=== PATIENT | female | born 1965 | race Caucasian/White ===

== ENCOUNTER 2020-06-21 08:49 | Outpatient (CLI) | payer OTHER, SELFPAY ==
--- NOTE | ~2020-06-21 | MMUS_ITS ---
EXAMINATION: MM diagnostic antoinette LT w yaneth, US breast LT complete HISTORY: Left breast mass TECHNIQUE: Additional 3-D tomosynthesis images of left were performed and synthetic 2-D images were g enerated. CAD analysis was submitted and interpreted. High resolution left breast ultrasound was perf ormed. COMPARISON: Comparison to multiple prior studies sequentially, with oldest reviewed study dated 12/2016. BREAST PARENCHYMAL COMPOSITION: The breasts are heterogenously dense, which may obscure small masses FINDINGS: MAMMOGRAPHIC FINDINGS: There is a lobulated 1.3 cm mass lower central aspect of the left breast. There is an intramammary ly mph node in the upper outer quadrant of the left breast. There is a tissue marker in the lower inner quadrant of the left breast. There are no suspicious calcifications or architectural distortion. ULTRASOUND: Left breast ultrasound: There is a complex heterogeneous area of soft tissue with posterior shadowing at 12:00, 1 cm from the nipple measuring approximately 1.8 cm greatest dimension. There are multiple simple and complicated cysts of the left breast. At 3:00, 1 cm from the nipple, there is an irregular shaped hypoechoic mass with antiparallel configuration of posterior shadowing measuring 5 x 4 mm. IMPRESSION: 1. Abnormal masses located at 12:00, 1 cm from the nipple measuring up to 1.8 cm and at 3:00, 1 cm fr om the nipple measuring 5 mm maximum dimension. 2. Stereotactic left breast biopsy recommended. BI-RADS category 4, suspicious findings. Reviewed, dictated and finalized at location A. IMPRESSION: 1. Abnormal masses located at 12:00, 1 cm from the nipple measuring up to 1.8 c m and at 3:00, 1 cm from the nipple measuring 5 mm maximum dimension. 2. Stereotactic left breast biopsy recommended. BI-RADS category 4, suspicious findings.
[2020-06-21 09:09] LABS: Hemoglobin A1C 6.5 % (<5.7)
[2020-06-21 09:54] LABS: Alanine Aminotransferase 41 U/L (14-59); Albumin Level 4.1 g/dL (3.4-5.0); Alkaline Phosphatase 53 U/L (46-116); Anion Gap 11.2 mmol/L (7-16); Aspartate Amino Transferase 22 U/L (15-37); Bilirubin,Total 0.6 mg/dL (0.00-1.00); Blood Urea Nitrogen 15 mg/dL (7-18); Calcium 9.4 mg/dL (8.5-10.1); Carbon Dioxide 32 mmol/L (21-32); Chloride 101 mmol/L (98-108); Estimated Glomerular Filt Rate 49; Glucose 137 mg/dL (70-99); Osmolality Calculated 292 mOsm/kg (285-295); Potassium 4.2 mmol/L (3.5-5.1); Sodium 140 mmol/L (136-145); Thyroid Stimulating Hormone 3.58 uIU/mL (0.36-3.74); Total Protein 7.8 g/dL (6.4-8.2)
== END 2020-06-21 08:50 | disposition home or self-care (01) ==
PROVIDERS: PCP Internal Medicine; Visit Provider Internal Medicine
DX: R92.8 Other abnormal and inconclusive findings on diagnostic imaging of breast (principal); E11.9 Type 2 diabetes mellitus without complications; I10 Essential (primary) hypertension; F41.9 Anxiety disorder, unspecified
CPT/HCPCS: 36415; 76641; 77061; 77065; 80053; 83036; 84443; G0279

== ENCOUNTER 2020-07-12 07:58 | Outpatient (CLI) | payer OTHER, SELFPAY ==
--- NOTE | ~2020-07-12 | MMUS_ITS ---
MM post biopsy invasive LT, US breast biopsy LT w image 07/12/2020 09:19 (accession [id number]), 07/12/2020 09:26 (accession [id number]) EXAMINATION: US GUIDED NEEDLE BIOPSY WITH VACUUM ASSISTANCE DATE: 07/12/2020 09:38 CDT INDICATION: Left breast mass seen on recent examination. Ultrasound-guided core biopsy is requested to evaluate for malignancy. TECHNIQUE AND FINDINGS: The risks and potential benefits of the procedure were discussed with the patient, and written inform ed consent was obtained. After sterile preparation of the left breast, 1% lidocaine was utilized for local anesthesia. 1% lidocaine with epinephrine was used for deep anesthesia. A 10G vacuum-assisted biopsy gun needle was advanced through to the outer edge of the region of inter est from a superior approach utilizing sonographic guidance. A total of 2 tissue core samples were o btained through the lesion. An Inrad tissue marker clip was then placed at the biopsy site. Hemostas is was achieved. The patient tolerated procedure well and there was no evidence of immediate complication. The patien t was given verbal instructions partly is from the department. Left breast mammograms to document ti ssue marker clip placement. The tissue samples were submitted to surgical pathology for histologic an alysis.] IMPRESSION: 1. Successful ultrasound-guided vacuum-assisted biopsy of left breast mass with tissue marker placem ent. Please refer to pathology report for histologic analysis. Reviewed, dictated and finalized at location A. IMPRESSION: 1. Successful ultrasound-guided vacuum-assisted biopsy of left breast mass wit h tissue marker placement. Please refer to pathology report for histologic anal ysis.
== END 2020-07-12 07:59 | disposition home or self-care (01) ==
LOC: ANHIMG 08:00
PROVIDERS: PCP Internal Medicine; Visit Provider Internal Medicine
DX: N63.20 Unspecified lump in the left breast, unspecified quadrant (principal)
CPT/HCPCS: 19083; 88305

== ENCOUNTER 2020-10-08 15:03 | Outpatient (CLI) | payer OTHER, SELFPAY ==
--- NOTE | ~2020-10-08 | US_ITS ---
EXAMINATION: US breast RT complete HISTORY: Patient presents with palpable right breast mass TECHNIQUE: Complete right breast ultrasound is performed including all quadrants in the subareolar re gion. COMPARISON: 12/08/2019 FINDINGS: Again seen are multiple areas of dense breast tissue as well as several breast cysts. No di screte suspicious cystic or solid mass is identified. IMPRESSION: No definite discrete mass identified to correlate with reported palpable abnormality of the right [place] ast. Recommend right diagnostic mammogram. BI-RADS Category 0: Incomplete: Needs additional imaging evaluation. Reviewed, dictated and finalized at location A. EATION TECHNICIAN IMPRESSION: No definite discrete mass identified to correlate with reported palpable abnorm ality of the right breast. Recommend right diagnostic mammogram. BI-RADS Category 0: Incomplete: Needs additional imaging evaluation.
== END 2020-10-08 15:04 | disposition home or self-care (01) ==
LOC: CHSIMG 15:05
PROVIDERS: PCP Internal Medicine; Visit Provider Internal Medicine
DX: N63.10 Unspecified lump in the right breast, unspecified quadrant (principal)
CPT/HCPCS: 76641

== ENCOUNTER 2020-10-11 08:54 | Outpatient (CLI) | payer OTHER, SELFPAY ==
--- NOTE | ~2020-10-11 | MM_ITS ---
EXAMINATION: MM diagnostic antoinette RT w yaneth HISTORY: Palpable lump at the 11:00 and 12:00 location of the right breast TECHNIQUE: Craniocaudal and mediolateral oblique 3-D tomosynthesis images of the right breast were pe rformed and synthetic 2-D images were generated. Spot compression views are also obtained. CAD analys is was submitted and interpreted. COMPARISON: 12/08/2019, 11/17/2019, 11/11/2018 BREAST PARENCHYMAL COMPOSITION: The breasts are heterogeneously dense, which may obscure small masses . FINDINGS: There is no evidence of suspicious mass, calcification, or architectural distortion to sug gest malignancy. There has been no suspicious interval change. No mammographic correlate is identifie d for the reported palpable abnormality of the right breast. IMPRESSION: 1. No specific mammographic correlate is identified for the reported palpable abnormality of concern. Further evaluation at this time should be based on clinical assessment. Continued follow-up physical examination is recommended. 2. Routine screening mammography is recommended. BI-RADS Category 1: Negative Reviewed, dictated and finalized at location A. COVERER IMPRESSION: 1. No specific mammographic correlate is identified for the reported palpable a bnormality of concern. Further evaluation at this time should be based on clini alla assessment. Continued follow-up physical examination is recommended. 2. Routine screening mammography is recommended. BI-RADS Category 1: Negative
== END 2020-10-11 08:55 | disposition home or self-care (01) ==
LOC: CHSIMG 08:56
PROVIDERS: PCP Internal Medicine; Visit Provider Internal Medicine
DX: N64.59 Other signs and symptoms in breast (principal)
CPT/HCPCS: 77061; 77065; G0279

== ENCOUNTER 2021-07-04 08:36 | Outpatient (CLI) | payer OTHER, SELFPAY ==
[2021-07-04 08:47] LABS: Basophils Absolute Auto 0.03 K/mm3 (0.00-0.10); Basophils Percent Auto 0.7 % (0.0-1.0); Eosinophils Absolute Auto 0.18 K/mm3 (0.02-0.50); Hematocrit 42.5 % (35.0-49.0); Hemoglobin 13.7 g/dL (12.0-15.0); Immature Granulocyte Absolute 0.01 K/mm3 (0.00-0.00); Immature Granulocyte Percent A 0.2 % (0.0-0.0); Lymphocytes Absolute Auto 1.37 K/mm3 (1.10-4.50); Lymphocytes Percent Auto 30.8 % (18.0-42.0); Mean Corpuscular HGB Conc 32.2 g/dL (32.0-36.0); Mean Corpuscular Hemoglobin 29.4 pg (27.0-31.0); Mean Corpuscular Volume 91.2 fL (78.0-102.0); Mean Platelet Volume 10.5 fl (9.2-11.8); Monocytes Percent Auto 6.7 % (2.0-11.0); Neutrophils Absolute Auto 2.6 K/mm3 (1.7-7.2); Neutrophils Percent Auto 57.6 % (50.0-70.0); Platelet Count Result 209 K/mm3 (150-420); Red Blood Count 4.66 M/mm3 (4.20-5.40); Red Cell Distribution Width 12.6 % (11.6-14.4); White Blood Count 4.5 K/mm3 (4.8-10.8)
[2021-07-04 09:05] LABS: Hemoglobin A1C 6.4 % (<5.7)
[2021-07-04 09:13] LABS: Creatinine Urine 121.12 mg/dL (40-278); MALB Creatinine Ratio 13.4 mg/g (0-30); Microalbumin Urine Random 16.3 mg/L
[2021-07-04 09:21] LABS: Appearance Urine Clear (Clear); Color Urine Light Yellow (Yellow); Glucose Urine UA Negative (Negative); Protein Urine Negative (Negative); Specific Grav Ur 1.015 (1.010-1.020); pH Urine 6.5 (5.0-8.0)
[2021-07-04 09:22] LABS: Add Urine Microscopic? YES; Bilirubin Urine Negative (Negative); Blood Urine 1+ (Negative); Ketones Urine Negative (Negative); Leukocyte Esterase Ur Negative (Negative); Nitrate Urine Negative (Negative); Squamous Epithelial Cell Urine Rare /hpf (Few); Urobilinogen Urine 0.2 mg/dL (0.2-1.0); WBC Urine None seen /hpf (0-3)
[2021-07-04 09:23] LABS: Bacteria Urine Trace /hpf
[2021-07-04 11:58] LABS: Alanine Aminotransferase 37 U/L (14-59); Albumin Level 4.2 g/dL (3.4-5.0); Alkaline Phosphatase 58 U/L (46-116); Anion Gap 13 mmol/L (8-16); Aspartate Amino Transferase 15 U/L (15-37); Bilirubin,Total 0.5 mg/dL (0.00-1.00); Blood Urea Nitrogen 16 mg/dL (7-18); Calcium 9.4 mg/dL (8.5-10.1); Carbon Dioxide 27 mmol/L (21-32); Chloride 103 mmol/L (98-108); Cholesterol 199 mg/dL (0-200); Estimated Glomerular Filt Rate > 60; Glucose 130 mg/dL (70-99); HDL Direct 61 mg/dL (40-60); LDL Cholesterol Calculated 107 mg/dL (<130); Osmolality Calculated 299 mOsm/kg (285-295); Sodium 143 mmol/L (136-145); Thyroid Stimulating Hormone 3.78 uIU/mL (0.36-3.74); Total Protein 7.9 g/dL (6.4-8.2); Triglycerides 155 mg/dL (0-150)
== END 2021-07-04 08:37 | disposition home or self-care (01) ==
LOC: CHSLAB 08:39
PROVIDERS: PCP Internal Medicine; Visit Provider Internal Medicine
DX: Z00.00 Encounter for general adult medical examination without abnormal findings (principal); I10 Essential (primary) hypertension; R73.03 Prediabetes
CPT/HCPCS: 36415; 80053; 80061; 81001; 82043; 83036; 84443; 85025

== ENCOUNTER 2021-07-29 14:47 | Outpatient (CLI) | payer OTHER, SELFPAY ==
--- NOTE | ~2021-07-29 | XR_ITS ---
EXAMINATION: XR wrist RT min 3V DATE: 07/29/2021 15:06 INDICATION: Right posterior wrist bony mass. TECHNIQUE: 4 views of right wrist were obtained. COMPARISON: None. FINDINGS: Bone alignment is normal. No fracture. There is mild osteoarthritis of first carpometacarpa l joint, first interphalangeal joint, and second and third metacarpophalangeal joints. IMPRESSION: 1. Mild polyarticular osteoarthritis. Reviewed, dictated and finalized at location A.
== END 2021-07-29 14:48 | disposition home or self-care (01) ==
LOC: CHSIMG 14:50
PROVIDERS: PCP Internal Medicine; Visit Provider Internal Medicine
DX: R22.31 Localized swelling, mass and lump, right upper limb (principal)
CPT/HCPCS: 73110

== ENCOUNTER 2021-09-15 16:50 | Emergency (ER) | payer OTHER, SELFPAY ==
--- NOTE | ~2021-09-15 | CT_ITS ---
EXAMINATION: CT abdomen pelvis wo con DATE: 09/15/2021 18:57 INDICATION: Left abdominal pain. TECHNIQUE: Computed tomography (CT) of the abdomen and pelvis was performed without intravenous contr ast. Automated exposure control and iterative reconstruction technique were employed. The dose-length product was 305.01 mGy-cm. COMPARISON: CT abdomen and pelvis 05/11/2017 FINDINGS: The visualized portions of the lung bases demonstrate mild atelectasis. No pleural effusion . The heart size is normal. No pericardial effusion. There is diffuse hepatic steatosis. There are ch anges of cholecystectomy. The spleen, pancreas, and adrenal glands are normal. There are 5 mm and 2 m m stones in right kidney. There is a 2 mm stone in left kidney. There are no dilated loops of bowel. The appendix is normal. There are no pathologically enlarged lymph nodes. There is no free intraperit paredes fluid. There is moderate thoracic and lumbar spondylosis. IMPRESSION: 1. Bilateral nonobstructing kidney stones. 2. Diffuse hepatic steatosis. Reviewed, dictated and finalized at location A.
--- NOTE | 2021-09-15 17:35 | ED.ABDPAIN ---
HPI - Abdominal Pain General Chief Complaint: Abdominal Pain Stated Complaint: side pain Time Seen by Provider: 09/15/21 17:35 Source: patient Mode of arrival: ambulatory Limitations: no limitations History of Present Illness HPI narrative: 56-year-old woman with a history of urolithiasis and ovarian cysts comes to the emergency department complaining of left lower abdominal pain that started about 1:00 p.m. this afternoon. She states the pain is worse while sitting. She denies fever, chills, nausea, vomiting, dysuria, hematuria, diarrhea, or prior similar symptoms. She has had no recent cough or cold symptoms. MD elicited complaint: abdominal pain Pertinent past history: kidney stones Onset (ago): hour(s) (5) Pain Consistency: constant Location: LLQ Severity: moderate Pain scale (0-10): 6 Quality: sharp Radiation: none Migration to: no migration Exacerbating factors: other (Sitting) Associated symptoms: denies other symptoms Related Data Home Medications Medication Instructions Recorded Confirmed lovastatin 10 mg PO HS 09/15/21 09/15/21 pantoprazole 40 mg PO DAILY 09/15/21 09/15/21 verapamil 180 mg PO HS 09/15/21 09/15/21 Allergies Allergy/AdvReac Type Severity Reaction Status Date / Time amoxicillin Allergy Unknown Unknown Unverified 09/15/21 17:58 clavulanic acid Allergy Unknown Unknown Unverified 09/15/21 17:58 Review of Systems Review of Systems: All systems reviewed & are unremarkable except as noted in HPI and below Constitutional: Constitutional: Denies chills and Denies fever(s) ENT: Denies sore throat Cardiovascular: Cardiovascular: Denies chest pain and Denies radiating jaw, neck or arm pain Respiratory: Respiratory: Denies cough and Denies dyspnea Gastrointestinal: Gastrointestinal: Reports abdominal pain, Denies diarrhea, Denies nausea and Denies vomiting Genitourinary: Genitourinary: Denies hematuria, Denies nocturia and Denies dysuria Musculoskeletal: Musculoskeletal: Denies back pain, Denies arthralgias and Denies joint swelling Integumentary/Breasts: Skin/Breast: Denies pruritus, Denies erythema and Denies rash Neurologic: Denies vertigo, Denies syncope and Denies focal weakness Hematologic/Lymphatic: Hematologic/Lymphatic: Denies easy bleeding and Denies easy bruising PMFSH Past Medical History Medical History GERD (gastroesophageal reflux disease) Hypertension Surgical History Surgical History H/O ovarian cystectomy H/O: hysterectomy S/P cholecystectomy Social History Social History (Updated 09/15/21 @ 17:50 by Roosevelt Duenas MD) Smoking status: Never smoker Alcohol intake: never Substance use: never Living arrangements: with family Exam Const: General: healthy appearing and alert Orientation/consciousness: patient oriented x3 Limitations: no limitations Other: Mild HENMT: Head: normal to inspection Ears: external ears normal, TM's normal bilaterally and EAC's normal General nose exam: Normal nares present Face and sinus: normal facial exam Mouth: Yes moist mucous membranes Throat: posterior oropharynx normal Eyes: Conjunctivae: conjunctivae normal Pupils: Equal, round and reactive pupils present EOM: EOMs intact bilaterally Resp: Effort & Inspection: normal respiratory effort and not labored Auscultation: clear to auscultation bilaterally, no rales, no rhonchi and no wheezes Cardio: Rate: regular rate Rhythm: regular rhythm Heart sounds: no murmurs GI: GI Palp: Yes Soft to palpation, Yes Tenderness to palpation present (GI) (RLQ), No Guarding due to palpation present (GI), No Rigid due to palpation, No Hernia present and No Palpable mass present Auscultation: normal bowel sounds Skin: General skin exam: normal color, no jaundice and no pallor Rashes: no rashes Extrem: General: normal to inspection and no clubbing, cyanosis or e
[2021-09-15 17:53] VITALS: BP 162/85; PULSE 80; RESP 20; TEMP 36.8; O2SAT 99
[2021-09-15 17:55] LABS: Basophils Absolute Auto 0.04 K/mm3 (0.00-0.10); Basophils Percent Auto 0.6 % (0.0-1.0); Eosinophils Absolute Auto 0.18 K/mm3 (0.02-0.50); Eosinophils Percent Auto 2.8 % (1.0-6.0); Hematocrit 41.7 % (35.0-49.0); Hemoglobin 13.8 g/dL (12.0-15.0); Immature Granulocyte Absolute 0.01 K/mm3 (0.00-0.00); Immature Granulocyte Percent A 0.2 % (0.0-0.0); Lymphocytes Absolute Auto 1.73 K/mm3 (1.10-4.50); Mean Corpuscular HGB Conc 33.1 g/dL (32.0-36.0); Mean Corpuscular Volume 90.7 fL (78.0-102.0); Mean Platelet Volume 10.9 fl (9.2-11.8); Monocytes Percent Auto 7.8 % (2.0-11.0); Neutrophils Absolute Auto 3.9 K/mm3 (1.7-7.2); Neutrophils Percent Auto 61.6 % (50.0-70.0); Platelet Count Result 210 K/mm3 (150-420); Red Cell Distribution Width 12.2 % (11.6-14.4); White Blood Count 6.4 K/mm3 (4.8-10.8)
[2021-09-15 17:56] LABS: Appearance Urine Clear (Clear); Bilirubin Urine Negative (Negative); Color Urine Light Yellow (Yellow); Glucose Urine UA Negative (Negative); Ketones Urine Negative (Negative); Leukocyte Esterase Ur Negative (Negative); Nitrate Urine Negative (Negative); Protein Urine Negative (Negative); Specific Grav Ur <= 1.005 (1.010-1.020); Urobilinogen Urine 0.2 mg/dL (0.2-1.0)
[2021-09-15 18:10] LABS: Add Urine Microscopic? YES; Blood Urine Trace (Negative); RBC Urine 0-2 /hpf (0-2)
[2021-09-15 18:14] LABS: Lactic Acid Reflex 2.1 mmol/L (0.4-2.0)
[2021-09-15 18:21] LABS: Alanine Aminotransferase 40 U/L (14-59); Albumin Level 4.1 g/dL (3.4-5.0); Alkaline Phosphatase 58 U/L (46-116); Anion Gap 12 mmol/L (8-16); Aspartate Amino Transferase 13 U/L (15-37); Bilirubin,Total 0.4 mg/dL (0.00-1.00); Blood Urea Nitrogen 11 mg/dL (7-18); Calcium 9.3 mg/dL (8.5-10.1); Carbon Dioxide 29 mmol/L (21-32); Chloride 100 mmol/L (98-108); Estimated CRCL calculation 53 ml/min; Estimated Glomerular Filt Rate > 60; Glucose 158 mg/dL (70-99); Osmolality Calculated 294 mOsm/kg (285-295); Potassium 3.1 mmol/L (3.5-5.1); Sodium 141 mmol/L (136-145); Total Protein 8.1 g/dL (6.4-8.2); Troponin I 4.1 ng/L (0.00-60.4)
[2021-09-15 18:22] LABS: Lipase 129 U/L (73-393)
[2021-09-15 19:31] VITALS: BP 154/80; PULSE 78; RESP 20; O2SAT 97
== END 2021-09-15 19:32 | disposition home or self-care (01) ==
PROVIDERS: Emergency Provider Emergency Medicine; PCP Internal Medicine
DX: E87.6 Hypokalemia (principal); R10.32 Left lower quadrant pain
CPT/HCPCS: 36415; 74176; 80053; 81001; 83605; 83690; 84484; 85025; 99282; 99284

== ENCOUNTER 2021-09-21 09:28 | Emergency (ER) | payer OTHER, SELFPAY ==
--- NOTE | ~2021-09-21 | CT_ITS ---
EXAMINATION: CT brain wo con INDICATION: Dizziness COMPARISON: None TECHNIQUE: Standard unenhanced head CT. The dose-length product (DLP) was 605.33 mGy-cm. The mA was a djusted according to patient size. Iterative reconstruction technique was employed. FINDINGS: There is no intracranial hemorrhage, acute infarction, or abnormal mass lesion. The ventric les are normal. There is no abnormal mass effect or midline shift. The zhou-white matter differentiat ion is normal. The basal cisterns are patent. The orbits are normal. There is mild mucosal thickening of the paranasal sinuses. IMPRESSION: 1. No acute intracranial abnormality. Reviewed, dictated and finalized at location A.
--- NOTE | 2021-09-21 09:36 | ED.WEAKNESS ---
HPI - Weakness General Chief complaint: Nausea/Vomiting/Diarrhea Stated complaint: N, loss of appetite, weakness dificulty standing Time Seen by Provider: 09/21/21 09:36 Related Data Home Medications Medication Instructions Recorded Confirmed lovastatin 10 mg PO HS 09/15/21 09/15/21 pantoprazole 40 mg PO DAILY 09/15/21 09/15/21 verapamil 180 mg PO HS 09/15/21 09/15/21 Allergies Allergy/AdvReac Type Severity Reaction Status Date / Time amoxicillin Allergy Unknown Unknown Verified 09/21/21 09:47 clavulanic acid Allergy Unknown Unknown Verified 09/21/21 09:47 [facility] Past Medical History Medical History GERD (gastroesophageal reflux disease) Hypertension Surgical History Surgical History H/O ovarian cystectomy H/O: hysterectomy S/P cholecystectomy Social History Social History (Updated 09/15/21 @ 17:50 by Roosevelt Duenas MD) Smoking status: Never smoker Alcohol intake: never Substance use: never MDM - Weakness ECG Data EKG #1: Attestation: I personally reviewed and interpreted this ECG as follows: ECG completion date: 09/21/21 ECG completion time: 09:57 Prior ECG tracings: available for review Interpretation: IVCD EKG Interpretation: normal rate, sinus rhythm, no ectopy, non-specific ST changes, widened QRS and NL axis Discharge Plan Discharge Prescriptions: No Action verapamil 180 mg tablet extended release 180 mg PO HS RF: 0 lovastatin 10 mg tablet 10 mg PO HS RF: 0 pantoprazole 40 mg tablet,delayed release (DR/EC) 40 mg PO DAILY RF: 0
[2021-09-21 09:40] VITALS: BP 152/86; PULSE 74; RESP 16; TEMP 36.6; O2SAT 100
--- NOTE | 2021-09-21 09:44 | ECG_ITS ---
Measurements Intervals [place] Rate: 68 P: 20 [place]: 166 QRS: 46 QRSD: 114 T: 52 QT: 396 QTc: 422 Interpretive Statements SINUS RHYTHM INCOMPLETE RIGHT BUNDLE BRANCH BLOCK BASELINE ARTIFACT- I, II, III, AVR, AVL, AVF BORDERLINE ECG Electronically Signed On 09-22-2021 22:37:20 CDT by Chuy Ochoa D.O.
[2021-09-21 10:00] VITALS: BP 137/74; PULSE 77
--- NOTE | 2021-09-21 10:04 | ED.DIZZY ---
HPI - Dizziness General Chief Complaint: Nausea/Vomiting/Diarrhea Stated Complaint: N, loss of appetite, weakness dificulty standing Time Seen by Provider: 09/21/21 09:36 Source: patient Mode of arrival: wheelchair Limitations: no limitations History of Present Illness HPI Narrative: 56-year-old woman with a history of hypertension comes in today complaining of dizziness has and feeling off balance so that she has to use [place] and furniture to steady herself. She states her symptoms started early this morning. She has nausea as well. She states that she has had ringing in her ears the past. She denies headaches, changes in vision, vomiting, diarrhea, cough or cold symptoms, cough, shortness of breath and chest pressure. She denies any sick exposures. MD elicited complaint: dizziness, difficulty walking and disequilibrium Onset (ago): hour(s) Timing: sudden onset Severity: moderate Description: off-balance Context: change in body position History of similar symptoms: No Exacerbating factors: movement/ambulation and change in body position Relieving factors: remaining still Associated symptoms: nausea and other (poor appetite) Related Data Home Medications Medication Instructions Recorded Confirmed lovastatin 10 mg PO HS 09/15/21 09/21/21 pantoprazole 40 mg PO DAILY 09/15/21 09/21/21 verapamil 180 mg PO HS 09/15/21 09/21/21 Allergies Allergy/AdvReac Type Severity Reaction Status Date / Time amoxicillin Allergy Unknown Unknown Verified 09/21/21 09:47 clavulanic acid Allergy Unknown Unknown Verified 09/21/21 09:47 Review of Systems Review of Systems: All systems reviewed & are unremarkable except as noted in HPI and below Constitutional: Constitutional: Denies chills and Denies fever(s) Eyes: Eyes: Denies change in vision and Denies photophobia ENT: Denies dysphagia, Denies nasal congestion and Denies sore throat Cardiovascular: Cardiovascular: Denies chest pain and Denies radiating jaw, neck or arm pain Respiratory: Respiratory: Denies cough and Denies dyspnea Gastrointestinal: Gastrointestinal: Denies abdominal pain, Denies diarrhea, Reports nausea and Denies vomiting Musculoskeletal: Musculoskeletal: Denies back pain, Denies arthralgias and Denies joint swelling Integumentary/Breasts: Skin/Breast: Denies pruritus, Denies erythema and Denies rash Neurologic: Denies vertigo, Reports dizziness and Denies syncope Hematologic/Lymphatic: Hematologic/Lymphatic: Denies easy bleeding and Denies easy bruising Allergic/Immunologic: Allergic/Immunologic: Denies throat swelling and Denies tongue swelling [facility] Past Medical History Medical History GERD (gastroesophageal reflux disease) Hypertension Surgical History Surgical History H/O ovarian cystectomy H/O: hysterectomy S/P cholecystectomy Social History Social History Smoking status: Never smoker Alcohol intake: never Substance use: never Exam Const: General: healthy appearing, no acute distress and alert Orientation/consciousness: patient oriented x3 Limitations: no limitations Eyes: Conjunctivae: conjunctivae normal Pupils: Equal, round and reactive pupils present EOM: EOMs intact bilaterally Resp: Effort & Inspection: normal respiratory effort and not labored Auscultation: clear to auscultation bilaterally, no rales, no rhonchi and no wheezes Cardio: Rate: regular rate Rhythm: regular rhythm Heart sounds: no murmurs GI: GI Palp: Yes Soft to palpation, Yes Tenderness to palpation present (GI) and No Guarding due to palpation present (GI) Auscultation: normal bowel sounds Skin: General skin exam: normal color, no jaundice and no pallor Rashes: no rashes Neuro: General: patient oriented x3, moves all extremities, no focal motor deficits and CN's II-XI intact bilaterally
[2021-09-21 10:06] LABS: Basophils Absolute Auto 0.02 K/mm3 (0.00-0.10); Basophils Percent Auto 0.4 % (0.0-1.0); Eosinophils Percent Auto 2.2 % (1.0-6.0); Hematocrit 41.6 % (35.0-49.0); Hemoglobin 13.6 g/dL (12.0-15.0); Immature Granulocyte Absolute 0.01 K/mm3 (0.00-0.00); Immature Granulocyte Percent A 0.2 % (0.0-0.0); Lymphocytes Absolute Auto 0.96 K/mm3 (1.10-4.50); Lymphocytes Percent Auto 21.1 % (18.0-42.0); Mean Corpuscular HGB Conc 32.7 g/dL (32.0-36.0); Mean Corpuscular Hemoglobin 29.4 pg (27.0-31.0); Mean Corpuscular Volume 89.8 fL (78.0-102.0); Mean Platelet Volume 10.7 fl (9.2-11.8); Monocytes Absolute Auto 0.24 K/mm3 (0.10-0.90); Monocytes Percent Auto 5.3 % (2.0-11.0); Neutrophils Absolute Auto 3.2 K/mm3 (1.7-7.2); Neutrophils Percent Auto 70.8 % (50.0-70.0); Platelet Count Result 203 K/mm3 (150-420); Red Blood Count 4.63 M/mm3 (4.20-5.40); Red Cell Distribution Width 12.3 % (11.6-14.4); White Blood Count 4.6 K/mm3 (4.8-10.8)
[2021-09-21 10:21] LABS: Alanine Aminotransferase 38 U/L (14-59); Albumin Level 3.9 g/dL (3.4-5.0); Alkaline Phosphatase 55 U/L (46-116); Anion Gap 10 mmol/L (8-16); Aspartate Amino Transferase 10 U/L (15-37); Bilirubin,Total 0.4 mg/dL (0.00-1.00); Blood Urea Nitrogen 18 mg/dL (7-18); Calcium 8.7 mg/dL (8.5-10.1); Carbon Dioxide 28 mmol/L (21-32); Chloride 101 mmol/L (98-108); Estimated CRCL calculation 53 ml/min; Estimated Glomerular Filt Rate > 60; Glucose 151 mg/dL (70-99); Magnesium 1.8 mg/dL (1.8-2.4); Osmolality Calculated 292 mOsm/kg (285-295); Potassium 4.1 mmol/L (3.5-5.1); Sodium 139 mmol/L (136-145); Total Protein 7.7 g/dL (6.4-8.2); Troponin I < 4.0 ng/L (0.00-60.4)
[2021-09-21 10:22] LABS: SARS-CoV-2 Ag Negative (Negative)
--- NOTE | 2021-09-21 11:19 | PC.NURSE ---
pt amb to bathroom steadily. states she feels just a little off balance. able to walk to bathroom without assistance or holding on to rails. spouse at bedside.
[2021-09-21 11:32] VITALS: BP 132/77; PULSE 64; RESP 16; TEMP 36.9; O2SAT 99
== END 2021-09-21 11:35 | disposition home or self-care (01) ==
PROVIDERS: Emergency Provider Emergency Medicine; PCP Internal Medicine
DX: R42 Dizziness and giddiness (principal); Z20.822 Contact with and (suspected) exposure to COVID-19; K21.9 Gastro-esophageal reflux disease without esophagitis; I10 Essential (primary) hypertension
CPT/HCPCS: 36415; 70450; 80053; 83735; 84484; 85025; 87426; 93005; 99283; 99284; C9803

== ENCOUNTER 2021-10-14 13:47 | Outpatient (CLI) | payer OTHER, SELFPAY ==
--- NOTE | ~2021-10-14 | MM_ITS ---
EXAMINATION: MM screening antoinette BI w yaneth HISTORY: Screening mammogram, family history of breast cancer in her mother. TECHNIQUE: Craniocaudal and mediolateral oblique 3-D tomosynthesis images were obtained and synthetic 2-D images were generated. CAD analysis was submitted and interpreted. COMPARISON: 10/11/2020, 06/21/2020, 12/08/2019, 11/17/2019, 11/11/2018 BREAST PARENCHYMAL COMPOSITION: The breasts are heterogeneously dense, which may obscure small masses . FINDINGS: There is no evidence of suspicious mass, calcification, or architectural distortion to sugg est malignancy in either breast. There has been no suspicious interval change. IMPRESSION: 1. No mammographic evidence of malignancy. 2. Recommend routine screening mammography in one year. BI-RADS Category 1: Negative Reviewed, dictated and finalized at location A. SCAPE ENGINEER
== END 2021-10-14 13:48 | disposition home or self-care (01) ==
PROVIDERS: PCP Internal Medicine; Visit Provider Internal Medicine
DX: Z12.31 Encounter for screening mammogram for malignant neoplasm of breast (principal)
CPT/HCPCS: 77063; 77067

== ENCOUNTER 2022-01-18 09:09 | Emergency (ER) | payer BC, OTHER, SELFPAY ==
[2022-01-18 09:33] VITALS: BP 161/78; PULSE 80; RESP 20; TEMP 36.7; O2SAT 100
[2022-01-18 09:46] LABS: Appearance Urine Clear (Clear); Bilirubin Urine Negative (Negative); Color Urine Yellow (Yellow); Glucose Urine UA Negative (Negative); Ketones Urine Negative (Negative); Leukocyte Esterase Ur Trace LEU/UL (Negative); Nitrate Urine Negative (Negative); Protein Urine Negative (Negative); Specific Grav Ur 1.015 (1.010-1.020); Urobilinogen Urine 0.2 mg/dL (0.2-1.0)
[2022-01-18 09:51] LABS: Add Urine Microscopic? YES; Blood Urine Trace-Intact (Negative)
[2022-01-18 09:52] LABS: Bacteria Urine Trace /hpf; RBC Urine 0-2 /hpf (0-2); Squamous Epithelial Cell Urine Moderate /hpf (Few)
--- NOTE | 2022-01-18 11:04 | ED.ABDPAIN ---
HPI - Abdominal Pain General Chief Complaint: Urogenital-Female Stated Complaint: UTI infection Time Seen by Provider: 01/18/22 09:11 Source: patient and RN notes reviewed Mode of arrival: ambulatory Limitations: no limitations History of Present Illness MD elicited complaint: abdominal pain Pertinent past history: past UTI Onset (ago): day(s) (2) Pain Consistency: constant Location: suprapubic Severity: mild Pain scale (0-10): 3 Quality: burning Radiation: none Migration to: no migration Exacerbating factors: nothing Relieving factors: nothing Associated symptoms: denies other symptoms Related Data Home Medications Medication Instructions Recorded Confirmed lovastatin 10 mg PO HS 09/15/21 01/18/22 pantoprazole 40 mg PO DAILY 09/15/21 01/18/22 verapamil 180 mg PO HS 09/15/21 01/18/22 Allergies Allergy/AdvReac Type Severity Reaction Status Date / Time amoxicillin Allergy Unknown Unknown Verified 01/18/22 09:39 clavulanic acid Allergy Unknown Unknown Verified 01/18/22 09:39 Review of Systems Review of Systems: All systems reviewed & are unremarkable except as noted in HPI and below PMFSH Past Medical History Medical History GERD (gastroesophageal reflux disease) Hypertension Urinary tract infection Surgical History Surgical History H/O ovarian cystectomy H/O: hysterectomy S/P cholecystectomy Social History Social History Smoking status: Never smoker Alcohol intake: never Substance use: never Exam Const: General: healthy appearing, no acute distress and alert Nutritional Appearance: obese Orientation/consciousness: patient oriented x3 Limitations: no limitations HENMT: Head: normal to inspection Ears: external ears normal, TM's normal bilaterally and EAC's normal General nose exam: Normal external nose present and Normal nares present Face and sinus: sinuses nontender Mouth: Yes lip normal and Yes moist mucous membranes Throat: posterior oropharynx normal Eyes: Conjunctivae: conjunctivae normal Pupils: Equal, round and reactive pupils present EOM: EOMs intact bilaterally Neck: Neck: normal visual inspection and no lymphadenopathy Other: supple Resp: Effort & Inspection: normal respiratory effort Auscultation: clear to auscultation bilaterally Cardio: Rate: regular rate Rhythm: regular rhythm GI: GI Palp: Yes Soft to palpation and No Tenderness to palpation present (GI) Auscultation: normal bowel sounds : General: Yes bladder normal to palpation and Yes no CVA tenderness Back/Spine/Pelvis: Back: no CVA tenderness Skin: General skin exam: normal color Rashes: no rashes Neuro: General: patient oriented x3, moves all extremities, no meningeal signs, no focal motor deficits and CN's II-XI intact bilaterally Extrem: General: normal to inspection and no pedal edema Psych: Appearance: grossly normal and well kempt Mental Status: mental status grossly normal Affect: normal affect and Anxious affect present Attitude: cooperative Thought content: Yes Normal thought content present Course Course Emergency Course: Pt was stable in the ED Reevaluation(s) Date: 01/18/22 Time: 10:05 Vital Signs Vital signs: Vital Signs Temperature 36.7 C 01/18/22 09:33 Pulse Rate 80 01/18/22 09:33 Respiratory Rate 20 01/18/22 09:33 Blood Pressure 161/78 H 01/18/22 09:33 Pulse Oximetry 100 01/18/22 09:33 Temperature 36.7 C 01/18/22 11:37 Pulse Rate 86 01/18/22 11:37 Respiratory Rate 20 01/18/22 11:37 Blood Pressure 154/89 H 01/18/22 11:37 Pulse Oximetry 100 01/18/22 11:37 MDM - Abdominal Pain Lab Data Labs: Lab Results 01/18/22 Range/Units 09:38 Urine Color Yellow (Yellow) Urine Appearance Clear (Clear) Urine pH 7.0 (5.0-8.0) Ur Specific [place] 1.015 (1.010-
[2022-01-18 11:37] VITALS: BP 154/89; PULSE 86; RESP 20; TEMP 36.7; O2SAT 100
== END 2022-01-18 11:39 | disposition home or self-care (01) ==
PROVIDERS: Emergency Provider Emergency Medicine; PCP Internal Medicine
DX: N39.0 Urinary tract infection, site not specified (principal)
CPT/HCPCS: 81001; 99283

== ENCOUNTER 2022-01-20 11:06 | Outpatient (CLI) | payer BC, OTHER, SELFPAY ==
[2022-01-20 11:45] LABS: Basophils Absolute Auto 0.03 K/mm3 (0.00-0.10); Basophils Percent Auto 0.6 % (0.0-1.0); Eosinophils Absolute Auto 0.19 K/mm3 (0.02-0.50); Eosinophils Percent Auto 3.7 % (1.0-6.0); Hematocrit 42.1 % (35.0-49.0); Hemoglobin 13.6 g/dL (12.0-15.0); Immature Granulocyte Absolute 0.01 K/mm3 (0.00-0.00); Immature Granulocyte Percent A 0.2 % (0.0-0.0); Lymphocytes Absolute Auto 1.74 K/mm3 (1.10-4.50); Lymphocytes Percent Auto 34.3 % (18.0-42.0); Mean Corpuscular HGB Conc 32.3 g/dL (32.0-36.0); Mean Corpuscular Hemoglobin 29.2 pg (27.0-31.0); Mean Corpuscular Volume 90.3 fL (78.0-102.0); Mean Platelet Volume 10.5 fl (9.2-11.8); Monocytes Absolute Auto 0.36 K/mm3 (0.10-0.90); Monocytes Percent Auto 7.1 % (2.0-11.0); Neutrophils Absolute Auto 2.8 K/mm3 (1.7-7.2); Neutrophils Percent Auto 54.1 % (50.0-70.0); Platelet Count Result 211 K/mm3 (150-420); Red Blood Count 4.66 M/mm3 (4.20-5.40); Red Cell Distribution Width 12.3 % (11.6-14.4); White Blood Count 5.1 K/mm3 (4.8-10.8)
[2022-01-20 11:53] LABS: Add Urine Microscopic? YES; Appearance Urine Clear (Clear); Bilirubin Urine Negative (Negative); Blood Urine 1+ (Negative); Color Urine Light Yellow (Yellow); Glucose Urine UA Trace (Negative); Ketones Urine Negative (Negative); Leukocyte Esterase Ur Negative LEU/UL (Negative); Nitrate Urine Negative (Negative); Protein Urine Negative (Negative); Specific Grav Ur 1.025 (1.010-1.020); Urobilinogen Urine 0.2 mg/dL (0.2-1.0); pH Urine 6.5 (5.0-8.0)
[2022-01-20 11:57] LABS: Bacteria Urine Trace /hpf; RBC Urine 0-2 /hpf (0-2); Squamous Epithelial Cell Urine Few /hpf (Few); WBC Urine None seen /hpf (0-3)
[2022-01-20 12:12] LABS: Alanine Aminotransferase 32 U/L (14-59); Albumin Level 3.9 g/dL (3.4-5.0); Alkaline Phosphatase 59 U/L (46-116); Amylase 74 U/L (25-115); Anion Gap 10 mmol/L (8-16); Aspartate Amino Transferase 12 U/L (15-37); Bilirubin,Total 0.3 mg/dL (0.00-1.00); Blood Urea Nitrogen 16 mg/dL (7-18); Calcium 9.1 mg/dL (8.5-10.1); Carbon Dioxide 26 mmol/L (21-32); Chloride 98 mmol/L (98-108); Estimated Glomerular Filt Rate 52; Glucose 203 mg/dL (70-99); Lipase 152 U/L (73-393); Osmolality Calculated 285 mOsm/kg (285-295); Potassium 4.1 mmol/L (3.5-5.1); Sodium 134 mmol/L (136-145); Total Protein 7.7 g/dL (6.4-8.2)
[2022-01-20 13:48] LABS: Hemoglobin A1C 6.4 % (<5.7)
== END 2022-01-20 11:07 | disposition home or self-care (01) ==
LOC: CHSLAB 11:10
PROVIDERS: PCP Internal Medicine; Visit Provider Internal Medicine
DX: N39.0 Urinary tract infection, site not specified (principal); R10.9 Unspecified abdominal pain; R73.9 Hyperglycemia, unspecified
CPT/HCPCS: 36415; 80053; 81001; 82150; 83036; 83690; 85025

== ENCOUNTER 2022-08-02 15:15 | Emergency (ER) | payer BC, OTHER, SELFPAY ==
--- NOTE | ~2022-08-02 | XR_ITS ---
EXAMINATION: XR chest 1V portable Exam Date/Time: 08/02/2022 19:00 CDT HISTORY: WEAKNESS/COVID POSITIVE Comparison: 11/12/2018. RESULT: Lines, tubes, and devices: Cholecystectomy clips. Lungs and pleura: Clear. Cardiomediastinal silhouette: Stable. Other: No acute osseous or upper abdominal finding. IMPRESSION: No acute cardiopulmonary process. Reviewed, dictated and finalized at location K.
[2022-08-02 15:29] VITALS: BP 158/83; PULSE 100; RESP 16; TEMP 36.6; O2SAT 100
--- NOTE | 2022-08-02 15:55 | ED.FEVER ---
HPI - Fever General Chief Complaint: Unspecified Stated Complaint: fever/body aches/stomach pain Source: patient Mode of arrival: ambulatory Limitations: no limitations History of Present Illness HPI Narrative: 57-year-old female with a history elevated sugars started on semaglutide yesterday. She presents to the history -- fever -- nausea with diffuse abdominal pain. No vomiting. No diarrhea. -- Headache -- body ache and fatigue MD elicited complaint: fever Pertinent past history: diabetes Onset (ago): day(s) ( started yesterday) Measured temperature: 36.6 C Exacerbating factors: nothing Relieving factors: nothing Associated symptoms: myalgias, headache, abdominal pain and nausea Treatments prior to arrival fever: none Related Data Home Medications Medication Instructions Recorded Confirmed lovastatin 10 mg tablet 10 mg PO HS 09/15/21 08/02/22 pantoprazole 40 mg tablet,delayed 40 mg PO DAILY 09/15/21 08/02/22 release verapamil 180 mg tablet,extended 180 mg PO HS 09/15/21 08/02/22 release semaglutide 7 mg tablet (Rybelsus) 7 mg PO DAILY 08/02/22 08/02/22 Allergies Allergy/AdvReac Type Severity Reaction Status Date / Time amoxicillin [From Augmentin] AdvReac Abdominal Verified 08/02/22 15:36 Pain clavulanic acid AdvReac Abdominal Verified 08/02/22 15:36 [From Augmentin] Pain Review of Systems Review of Systems: All systems reviewed & are unremarkable except as noted in HPI and below Constitutional: Constitutional: Reports as per HPI and Reports no additional constitutional complaints Eyes: Eyes: Reports as per HPI and Reports no additional eye complaints ENT: Reports system reviewed and no additional complaints, except as documented and Reports as per HPI Cardiovascular: Cardiovascular: Reports as per HPI and Reports no additional cardiovascular complaints Respiratory: Respiratory: Reports as per HPI and Reports no additional respiratory complaints Gastrointestinal: Gastrointestinal: Reports as per HPI, Reports no additional gastrointestinal complaints, Reports abdominal pain and Reports nausea Genitourinary: Genitourinary: Reports no additional female genitourinary complaints Musculoskeletal: Musculoskeletal: Reports no additional musculoskeletal complaints and Reports as per HPI Integumentary/Breasts: Skin/Breast: Reports system reviewed and no additional complaints, except as docu and Reports as per HPI Neurologic: Reports system reviewed and no additional complaints, except as documented and Reports as per HPI Psychiatric: Psychiatric: Reports no additional psychiatric complaints and Reports as per HPI Endocrine: Endocrine: Reports no additional endocrine complaints and Reports as per HPI Hematologic/Lymphatic: Hematologic/Lymphatic: Reports no additional hematologic/lymphatic complaints and Reports as per HPI Allergic/Immunologic: Allergic/Immunologic: Reports no additional allergic/immunologic complaints and Reports as per HPI [facility] Past Medical History Medical History GERD (gastroesophageal reflux disease) Hypertension Urinary tract infection Surgical History Surgical History H/O ovarian cystectomy H/O: hysterectomy S/P cholecystectomy Social History Social History Smoking status: Never smoker Alcohol intake: never Substance use: never Exam Const: General: no acute distress Nutritional Appearance: well nourished Orientation/consciousness: patient oriented x3 Limitations: no limitations HENMT: Head: normal to inspection Ears: external ears normal General nose exam: Normal external nose present Face and sinus: normal facial exam Mouth: Yes Normal oral and palatal mucosa present Throat: posterior oropharynx normal Eyes: Conjunctivae: conjunctivae normal Pupils: Equal, round and reacti
[2022-08-02 17:04] LABS: Basophils Absolute Auto 0.02 K/mm3 (0.00-0.10); Basophils Percent Auto 0.4 % (0.0-1.0); Eosinophils Absolute Auto 0.08 K/mm3 (0.02-0.50); Eosinophils Percent Auto 1.6 % (1.0-6.0); Hemoglobin 13.9 g/dL (12.0-15.0); Immature Granulocyte Absolute 0.01 K/mm3 (0.00-0.00); Immature Granulocyte Percent A 0.2 % (0.0-0.0); Lymphocytes Absolute Auto 0.52 K/mm3 (1.10-4.50); Lymphocytes Percent Auto 10.6 % (18.0-42.0); Mean Corpuscular HGB Conc 33.1 g/dL (32.0-36.0); Mean Corpuscular Volume 90.5 fL (78.0-102.0); Monocytes Absolute Auto 0.34 K/mm3 (0.10-0.90); Monocytes Percent Auto 6.9 % (2.0-11.0); Neutrophils Absolute Auto 3.9 K/mm3 (1.7-7.2); Neutrophils Percent Auto 80.3 % (50.0-70.0); Platelet Count Result 200 K/mm3 (150-420); Red Blood Count 4.64 M/mm3 (4.20-5.40); Red Cell Distribution Width 12.4 % (11.6-14.4); White Blood Count 4.9 K/mm3 (4.8-10.8)
[2022-08-02 17:38] LABS: Add Urine Microscopic? YES; Appearance Urine Clear (Clear); Bilirubin Urine Negative (Negative); Blood Urine 1+ (Negative); Color Urine Light Yellow (Yellow); Glucose Urine UA Negative (Negative); Ketones Urine Negative (Negative); Leukocyte Esterase Ur Negative (Negative); Nitrate Urine Negative (Negative); Protein Urine Negative (Negative); Urobilinogen Urine 0.2 mg/dL (0.2-1.0)
[2022-08-02 17:40] LABS: SARS-CoV-2 RNA PCR Positive (Negative)
[2022-08-02 18:09] LABS: Influenza A QL RT-PCR Negative (Negative); Influenza B QL RT-PCR Negative (Negative)
[2022-08-02] MEDS: ONDANSETRON HCL ODT 4 MG TABLET PO (18:09)
[2022-08-02 18:19] LABS: RBC Urine 0-2 /hpf (0-2); Squamous Epithelial Cell Urine Few /hpf (Few)
[2022-08-02 20:10] LABS: Lactic Acid Reflex 1.2 mmol/L (0.4-2.0)
[2022-08-02 20:23] LABS: Alanine Aminotransferase 80 U/L (6-35); Albumin Level 4.9 g/dL (3.5-5.1); Alkaline Phosphatase 74 U/L (38-126); Anion Gap 11 mmol/L (8-16); Aspartate Amino Transferase 85 U/L (14-36); Bilirubin,Total 0.5 mg/dL (0.2-1.3); Blood Urea Nitrogen 12 mg/dL (7-17); Calcium 9.7 mg/dL (8.4-10.2); Carbon Dioxide 27 mmol/L (22-30); Chloride 100 mmol/L (98-107); Estimated Glomerular Filt Rate > 60; Glucose 95 mg/dL (65-110); Lipase 75 U/L (23-300); Osmolality Calculated 285 mOsm/kg (285-295); Potassium 3.7 mmol/L (3.4-5.0); Sodium 138 mmol/L (137-145)
[2022-08-02 20:25] LABS: Troponin I < 0.012 ng/mL (0.000-0.034)
[2022-08-02] MEDS: KETOROLAC 30 MG/ML VIAL (*BKC) IM (20:26)
[2022-08-02 21:06] VITALS: BP 155/83; PULSE 93; RESP 19; TEMP 37.1; O2SAT 96
== END 2022-08-02 21:33 | disposition home or self-care (01) ==
PROVIDERS: Emergency Provider Internal Medicine Critical Care Medicine; PCP Internal Medicine
DX: U07.1 COVID-19 (principal); R79.9 Abnormal finding of blood chemistry, unspecified
CPT/HCPCS: 36415; 71045; 80053; 81001; 83605; 83690; 84484; 85025; 87502; 96372; 99284; A9270; C9803; J1885; U0003; U0005

== ENCOUNTER 2022-08-27 14:27 | Outpatient (CLI) | payer BC, OTHER, SELFPAY | END 2022-08-27 14:28 | disposition home or self-care (01) | LOC: ANHAUDASC 14:28 | PROVIDERS: PCP Internal Medicine; Visit Provider Otolaryngology | DX: H93.13 Tinnitus, bilateral (principal); H90.3 Sensorineural hearing loss, bilateral | CPT/HCPCS: 92557; 92567 ==

== ENCOUNTER 2022-10-27 11:39 | Outpatient (CLI) | payer BC, OTHER, SELFPAY ==
--- NOTE | ~2022-10-27 | MM_ITS ---
EXAMINATION: MM screening antoinette BI w yaneth HISTORY: Screening mammogram, family history of breast cancer in her mother. TECHNIQUE: Craniocaudal and mediolateral oblique 3-D tomosynthesis images were obtained and synthetic 2-D images were generated. CAD analysis was submitted and interpreted. COMPARISON: 10/14/2021, 10/11/2020, 06/21/2020, 12/08/2019 BREAST PARENCHYMAL COMPOSITION: The breasts are heterogeneously dense, which may obscure small masses . FINDINGS: No suspicious mass, calcification, or architectural distortion are identified in either [place] ast to suggest malignancy. There has been no suspicious interval change. IMPRESSION: 1. No mammographic evidence of malignancy. 2. Recommend routine screening mammography in one year. BI-RADS Category 1: Negative Reviewed, dictated and finalized at location A. AZZO WORKER APPRENTICE
== END 2022-10-27 11:40 | disposition home or self-care (01) ==
LOC: CHSIMG 11:40
PROVIDERS: PCP Internal Medicine; Visit Provider Internal Medicine
DX: Z12.31 Encounter for screening mammogram for malignant neoplasm of breast (principal)
CPT/HCPCS: 77063; 77067

== ENCOUNTER 2023-01-22 07:38 | Outpatient (CLI) | payer BC, OTHER, SELFPAY ==
--- NOTE | ~2023-01-22 | CT_ITS ---
EXAMINATION: CT abdomen pelvis wo con DATE: 01/22/2023 12:46 INDICATION: Left flank pain. Microhematuria. TECHNIQUE: Computed tomography (CT) of the abdomen and pelvis was performed without intravenous contr ast. The dose-length product was 279.37 mGy-cm. Automated exposure control and iterative reconstructi on technique were employed. COMPARISON: CT dated 09/15/2021 FINDINGS: Lung bases are unremarkable. Heart size normal. No significant pleural or pericardial effus ion. There is a 6 mm nonobstructing right renal stone. There are nonobstructing left renal stones, la rgest measuring 4 mm. There are cholecystectomy clips. The liver, spleen, pancreas, adrenal glands are unremarkable. Normal appendix. Nonobstructive bowel gas pattern. No significant vascular abnormality. Small fat-containin g umbilical hernia. Mild-moderate lower thoracic and lumbar spondylosis. No lymphadenopathy. No free air or free fluid. IMPRESSION: 1. Nonobstructing bilateral nephrolithiasis. Reviewed, dictated and finalized at location L. EL KILN REPAIRER
[2023-01-22 08:01] LABS: Basophils Absolute Auto 0.03 K/mm3 (0.00-0.10); Basophils Percent Auto 0.7 % (0.0-1.0); Eosinophils Absolute Auto 0.15 K/mm3 (0.02-0.50); Eosinophils Percent Auto 3.5 % (1.0-6.0); Hematocrit 41.3 % (35.0-49.0); Hemoglobin 13.6 g/dL (12.0-15.0); Immature Granulocyte Absolute 0.01 K/mm3 (0.00-0.00); Immature Granulocyte Percent A 0.2 % (0.0-0.0); Lymphocytes Absolute Auto 1.41 K/mm3 (1.10-4.50); Lymphocytes Percent Auto 33.1 % (18.0-42.0); Mean Corpuscular HGB Conc 32.9 g/dL (32.0-36.0); Mean Corpuscular Hemoglobin 29.6 pg (27.0-31.0); Mean Platelet Volume 10.5 fl (9.2-11.8); Monocytes Absolute Auto 0.27 K/mm3 (0.10-0.90); Monocytes Percent Auto 6.3 % (2.0-11.0); Neutrophils Absolute Auto 2.4 K/mm3 (1.7-7.2); Neutrophils Percent Auto 56.2 % (50.0-70.0); Platelet Count Result 211 K/mm3 (150-420); Red Blood Count 4.59 M/mm3 (4.20-5.40); Red Cell Distribution Width 12.3 % (11.6-14.4); White Blood Count 4.3 K/mm3 (4.8-10.8)
[2023-01-22 08:03] LABS: Add Urine Microscopic? YES; Appearance Urine Clear (Clear); Bilirubin Urine Negative (Negative); Blood Urine Trace-Intact (Negative); Color Urine Light Yellow (Yellow); Glucose Urine UA Negative (Negative); Ketones Urine Negative (Negative); Leukocyte Esterase Ur Negative (Negative); Nitrate Urine Negative (Negative); Protein Urine Negative (Negative); Urobilinogen Urine 0.2 mg/dL (0.2-1.0); pH Urine 6.5 (5.0-8.0)
[2023-01-22 08:09] LABS: Hemoglobin A1C 6.9 % (<5.7)
[2023-01-22 08:13] LABS: RBC Urine 0-2 /hpf (0-2); WBC Urine None seen /hpf (0-3)
[2023-01-22 08:14] LABS: Bacteria Urine Trace /hpf; Squamous Epithelial Cell Urine Moderate /hpf (Few)
[2023-01-22 08:51] LABS: Alanine Aminotransferase 41 U/L (14-59); Albumin Level 3.9 g/dL (3.4-5.0); Alkaline Phosphatase 63 U/L (46-116); Anion Gap 8 mmol/L (8-16); Aspartate Amino Transferase 22 U/L (15-37); Bilirubin,Total 0.4 mg/dL (0.00-1.00); Blood Urea Nitrogen 13 mg/dL (7-18); Calcium 9.2 mg/dL (8.5-10.1); Carbon Dioxide 30 mmol/L (21-32); Chloride 102 mmol/L (98-108); Cholesterol 218 mg/dL (0-200); Estimated Glomerular Filt Rate > 60; Glucose 141 mg/dL (70-99); HDL Direct 55 mg/dL (40-60); LDL Cholesterol Calculated 122 mg/dL (<130); Osmolality Calculated 292 mOsm/kg (285-295); Potassium 4.4 mmol/L (3.5-5.1); Sodium 140 mmol/L (136-145); Total Protein 7.5 g/dL (6.4-8.2); Triglycerides 203 mg/dL (0-150)
== END 2023-01-22 07:39 | disposition home or self-care (01) ==
PROVIDERS: PCP Internal Medicine; Visit Provider Internal Medicine
DX: Z00.00 Encounter for general adult medical examination without abnormal findings (principal); I10 Essential (primary) hypertension; E78.5 Hyperlipidemia, unspecified; E11.9 Type 2 diabetes mellitus without complications; N20.0 Calculus of kidney
CPT/HCPCS: 36415; 74176; 80053; 80061; 81001; 83036; 84443; 85025

== ENCOUNTER 2023-05-20 09:01 | Outpatient (CLI) | payer BC, OTHER, SELFPAY ==
--- NOTE | 2023-05-20 11:00 | NEURO_ITS ---
Impression: Patient reports a history of shooting pain in left upper extremity. # Normal Nerve Conduction Study. # Normal needle/EMG. # Clinical correlation recommended. Nerve Conduction Studies Anti Sensory Summary Table Stim Site NR Peak (ms) P-T Amp (?V) Site1 Site2 Delta-P (ms) Dist (cm) Clint (m/s) Left Median Anti Sensory (2-3nd Digit) Wrist 2.9 66.9 Wrist 2-3nd Digit 2.9 14.0 48 Wrist 2.9 78.1 Wrist 2-3nd Digit 2.9 14.0 48 Left Radial Anti Sensory (Base 1st Digit) Wrist 2.9 9.1 Wrist Base 1st Digit 2.9 0.0 Left Ulnar Anti Sensory (5th Digit) Wrist 2.3 36.1 Wrist 5th Digit 2.3 14.0 61 Motor Summary Table Stim Site NR Onset (ms) O-P Amp (mV) Site1 Site2 Delta-0 (ms) Dist (cm) Clint (m/s) Left Median Motor (Abd Poll Brev) Wrist 2.7 8.3 Elbow Wrist 3.6 21.0 58 Elbow 6.3 6.2 Left Ulnar Motor (Abd Dig Minimi) Wrist 2.3 9.3 A Elbow Wrist 4.8 30.0 63 A Elbow 7.1 7.8 B Elbow Wrist 3.1 19.0 61 B Elbow 5.4 7.9 F Wave Studies NR F-Lat (ms) L-R F-Lat (ms) Left Median (Mrkrs) (Abd Poll Brev) 24.30 Left Ulnar (Mrkrs) (Abd Dig Min) 25.16 EMG Side Muscle Nerve Root Ins Act Fibs Amp Dur Recrt Comment Left 1stDorInt Ulnar C8-T1 Nml Nml Nml Nml Nml Left Ext Indicis Radial (Post Int) C7-8 Nml Nml Nml Nml Nml Left Ext Digitorum Radial (Post Int) C7-8 Nml Nml Nml Nml Nml Left BrachioRad Radial C5-6 Nml Nml Nml Nml Nml Left PronatorTeres Median C6-7 Nml Nml Nml Nml Nml Left Abd Poll Brev Median C8-T1 Nml Nml Nml Nml Nml MTDD
== END 2023-05-20 09:02 | disposition home or self-care (01) ==
LOC: ANHNEURO 09:02
PROVIDERS: PCP Internal Medicine; Visit Provider Nurse Practitioner Family
DX: M79.622 Pain in left upper arm (principal); R20.2 Paresthesia of skin
CPT/HCPCS: 95886; 95909

== ENCOUNTER 2023-06-24 12:35 | Emergency (ER) | payer BC, OTHER, SELFPAY ==
--- NOTE | ~2023-06-24 | CT_ITS ---
EXAMINATION: CT abdomen pelvis wo con DATE: 06/24/2023 13:26 INDICATION: Left flank pain. History kidney stones. TECHNIQUE: Computed tomography (CT) of the abdomen and pelvis was performed without intravenous contr ast. Automated exposure control and iterative reconstruction technique were employed. Exam dose: 353 .23 mGy-cm total exam DLP. COMPARISON: January 22, 2023 CT abdomen pelvis FINDINGS: There is minimal discoid atelectasis or scarring at the lung bases. No basilar consolidatio n. Normal heart size. No pericardial or pleural effusion. Small sliding hiatal hernia. Status post cholecystectomy. No bile duct or pancreatic duct dilatation. No hepatic, pancreatic space -occupying mass lesion. Normal splenic size. The adrenal glands are unremarkable. There is a pinpoint nonobstructing lower pole right renal calculus and approximately 4 x 5.5 mm nonob structing lower pole right renal calculus. There is a nonobstructing approximately 3 mm upper pole le ft renal calculus. No ureteral calculus or hydroureteronephrosis or urinary bladder calculus or thickening of the urinar y bladder wall. Normal caliber of the abdominal aorta. No intraperitoneal or retroperitoneal or pelvic mass lesion or adenopathy or ascites. Normal appendix. No bowel obstruction, bowel wall thickening, pneumatosis or intraperitoneal free air is detected. Mild thoracic and lumbar spine degenerative changes. No suspicious osteolytic or osteoblastic lesions . IMPRESSION: Bilateral nonobstructive nephrolithiasis; no ureteral calculus or hydroureteronephrosis Small sliding hiatal hernia Status post cholecystectomy Normal appendix Reviewed, dictated and finalized at Location A. Reviewed, dictated and finalized at location B.
[2023-06-24 12:38] VITALS: BP 164/70; PULSE 78; RESP 20; TEMP 36.8; O2SAT 98
[2023-06-24 12:43] LABS: Appearance Urine Clear (Clear); Bilirubin Urine Negative (Negative); Blood Urine 1+ (Negative); Color Urine Light Yellow (Yellow); Glucose Urine UA Negative (Negative); Ketones Urine Negative (Negative); Leukocyte Esterase Ur Negative LEU/UL (Negative); Nitrate Urine Negative (Negative); Protein Urine Negative (Negative); Specific Grav Ur 1.025 (1.010-1.020); Urobilinogen Urine 0.2 mg/dL (0.2-1.0)
--- NOTE | 2023-06-24 12:44 | ED.ABDPAIN ---
HPI - Abdominal Pain General Chief Complaint: Unspecified Stated Complaint: L abdominal pain Source: patient Mode of arrival: ambulatory Limitations: no limitations History of Present Illness HPI narrative: 58-year-old female with a history of GERD, dyslipidemia, hypertension, low back pain, kidney stones presents to the ER with -- left flank pain of 1 day duration -- dysuria without any hematuria no fever or chills MD elicited complaint: flank pain Pertinent past history: gastritis and kidney stones Onset (ago): day(s) ( left flank pain started 1 day ago.) Pain Consistency: intermittent Location: L flank Severity: moderate Quality: aching Radiation: none Migration to: no migration Exacerbating factors: nothing Relieving factors: nothing Associated symptoms: denies other symptoms Related Data Home Medications Medication Instructions Recorded Confirmed lovastatin 10 mg tablet 10 mg PO QPM 09/15/21 06/24/23 pantoprazole 40 mg tablet,delayed 40 mg PO DIRECTED 09/15/21 06/24/23 release famotidine 20 mg tablet 20 mg PO DAILY 08/11/22 06/24/23 verapamil 240 mg 24 hr 240 mg PO HS 08/11/22 06/24/23 capsule,extended release cholecalciferol (vitamin D3) 50 50 mcg PO DAILY 05/21/23 06/24/23 mcg (2,000 unit) capsule (Vitamin D3) vitamin E (dl, acetate) 180 mg 180 mg PO DAILY 05/21/23 06/24/23 (400 unit) capsule zinc 50 mg capsule 50 mg PO DAILY 05/21/23 06/24/23 Allergies Allergy/AdvReac Type Severity Reaction Status Date / Time amoxicillin [From Augmentin] AdvReac Abdominal Verified 06/23/23 15:00 Pain clavulanic acid AdvReac Abdominal Verified 06/23/23 15:00 [From Augmentin] Pain Review of Systems Review of Systems: All systems reviewed & are unremarkable except as noted in HPI and below Constitutional: Constitutional: Reports as per HPI and Reports no additional constitutional complaints Eyes: Eyes: Reports as per HPI and Reports no additional eye complaints ENT: Reports system reviewed and no additional complaints, except as documented and Reports as per HPI Comments: tinnitus with decreased hearing Cardiovascular: Cardiovascular: Reports as per HPI and Reports no additional cardiovascular complaints Respiratory: Respiratory: Reports as per HPI and Reports no additional respiratory complaints Gastrointestinal: Gastrointestinal: Reports as per HPI and Reports no additional gastrointestinal complaints Genitourinary: Genitourinary: Reports no additional female genitourinary complaints and Reports as per HPI Musculoskeletal: Musculoskeletal: Reports no additional musculoskeletal complaints, Reports as per HPI and Reports back pain Comments: History of low back pain radiating to the back of the left thigh Integumentary/Breasts: Skin/Breast: Reports system reviewed and no additional complaints, except as docu and Reports as per HPI Neurologic: Reports system reviewed and no additional complaints, except as documented and Reports as per HPI Psychiatric: Psychiatric: Reports no additional psychiatric complaints and Reports as per HPI Endocrine: Endocrine: Reports no additional endocrine complaints and Reports as per HPI Hematologic/Lymphatic: Hematologic/Lymphatic: Reports no additional hematologic/lymphatic complaints and Reports as per HPI Allergic/Immunologic: Allergic/Immunologic: Reports no additional allergic/immunologic complaints PMF Past Medical History Medical History GERD (gastroesophageal reflux disease) Hypertension Urinary tract infection Surgical History Surgical History H/O ovarian cystectomy H/O: hysterectomy S/P cholecystectomy Social History Social History Smoking status: Never smoker Alcohol intake: current Substance use: never Substance use type: does not use Livin
[2023-06-24 12:46] LABS: Add Urine Microscopic? YES; Bacteria Urine Trace /hpf; RBC Urine 0-2 /hpf (0-2); Squamous Epithelial Cell Urine Moderate /hpf (Few); WBC Urine None seen /hpf (0-3)
[2023-06-24 13:25] LABS: Basophils Absolute Auto 0.03 K/mm3 (0.00-0.10); Basophils Percent Auto 0.6 % (0.0-1.0); Eosinophils Absolute Auto 0.14 K/mm3 (0.02-0.50); Eosinophils Percent Auto 2.8 % (1.0-6.0); Hematocrit 39.5 % (35.0-49.0); Hemoglobin 12.9 g/dL (12.0-15.0); Immature Granulocyte Absolute 0.01 K/mm3 (0.00-0.00); Immature Granulocyte Percent A 0.2 % (0.0-0.0); Lymphocytes Absolute Auto 1.33 K/mm3 (1.10-4.50); Lymphocytes Percent Auto 26.5 % (18.0-42.0); Mean Corpuscular HGB Conc 32.7 g/dL (32.0-36.0); Mean Corpuscular Hemoglobin 29.8 pg (27.0-31.0); Mean Corpuscular Volume 91.2 fL (78.0-102.0); Monocytes Absolute Auto 0.33 K/mm3 (0.10-0.90); Monocytes Percent Auto 6.6 % (2.0-11.0); Neutrophils Absolute Auto 3.2 K/mm3 (1.7-7.2); Neutrophils Percent Auto 63.3 % (50.0-70.0); Platelet Count Result 209 K/mm3 (150-420); Red Blood Count 4.33 M/mm3 (4.20-5.40); Red Cell Distribution Width 12.5 % (11.6-14.4)
[2023-06-24 13:30] VITALS: BP 129/54; PULSE 78; RESP 20; O2SAT 96
[2023-06-24] MEDS: KETOROLAC 30 MG/ML VIAL (*BKC) IV PUSH (13:35)
[2023-06-24] MEDS: LACTATED RINGERS 1,000 ML 999 ML IV CONT (13:36)
[2023-06-24 13:39] LABS: Alanine Aminotransferase 32 U/L (14-59); Albumin Level 3.8 g/dL (3.4-5.0); Alkaline Phosphatase 64 U/L (46-116); Anion Gap 10 mmol/L (8-16); Aspartate Amino Transferase 13 U/L (15-37); Bilirubin,Total 0.4 mg/dL (0.00-1.00); Blood Urea Nitrogen 13 mg/dL (7-18); Calcium 8.9 mg/dL (8.5-10.1); Carbon Dioxide 27 mmol/L (21-32); Chloride 102 mmol/L (98-108); Estimated CRCL calculation 52 ml/min; Estimated Glomerular Filt Rate 56; Glucose 205 mg/dL (70-99); Lipase 42 U/L (16-77); Osmolality Calculated 294 mOsm/kg (285-295); Potassium 3.7 mmol/L (3.5-5.1); Sodium 139 mmol/L (136-145); Total Protein 7.4 g/dL (6.4-8.2)
[2023-06-24 13:45] LABS: Lactic Acid Reflex 2.4 mmol/L (0.4-2.0)
[2023-06-24 14:31] VITALS: BP 129/66; PULSE 80; RESP 20; TEMP 36.6; O2SAT 98
[2023-06-24 15:56] LABS: Reflex Lactic Acid Yes or No No Lactic Reflex
== END 2023-06-24 14:38 | disposition home or self-care (01) ==
PROVIDERS: Emergency Provider Internal Medicine Critical Care Medicine; PCP Internal Medicine
DX: R73.9 Hyperglycemia, unspecified (principal); R10.9 Unspecified abdominal pain; E78.5 Hyperlipidemia, unspecified; I10 Essential (primary) hypertension
CPT/HCPCS: 36415; 74176; 80053; 81001; 83605; 83690; 85025; 96361; 96374; 99284; J1885; J7120

== ENCOUNTER 2023-07-02 02:09 | Day surgery (SDC) | payer BC, OTHER, SELFPAY ==
[2023-05-21 08:44] VITALS: BMI 37.2
--- NOTE | 2023-06-01 14:56 | PM.HPGS ---
History of Present Illness History of Present Illness Consent: Risks, benefits, and alternatives have been discussed and questions answered. Patient agrees to proceed with procedure. Chief complaint: family hx of esophageal ca Narrative: Julia Pop is a 58 year old female With a family history of esophageal cancer. Review of Systems Review of Systems: All systems reviewed & are unremarkable except as noted in HPI and below PMFSH Past Medical History Medical History GERD (gastroesophageal reflux disease) Hypertension Urinary tract infection Surgical History Surgical History H/O ovarian cystectomy H/O: hysterectomy S/P cholecystectomy Social History Social History Smoking status: Never smoker Alcohol intake: current Substance use: never Substance use type: does not use Living arrangements: with family Spiritual care concerns: No Meds Home Medications and Allergies Home Medications Medication Instructions Recorded Confirmed Type lovastatin 10 mg tablet 10 mg PO QPM 09/15/21 05/21/23 History pantoprazole 40 mg tablet,delayed 40 mg PO DIRECTED 09/15/21 05/21/23 History release famotidine 20 mg tablet 20 mg PO DAILY 08/11/22 05/21/23 History verapamil 240 mg 24 hr 240 mg PO HS 08/11/22 05/21/23 History capsule,extended release cholecalciferol (vitamin D3) 50 50 mcg PO DAILY 05/21/23 05/21/23 History mcg (2,000 unit) capsule (Vitamin D3) vitamin E (dl, acetate) 180 mg 180 mg PO DAILY 05/21/23 05/21/23 History (400 unit) capsule zinc 50 mg capsule 50 mg PO DAILY 05/21/23 05/21/23 History Allergies Allergy/AdvReac Type Severity Reaction Status Date / Time amoxicillin [From Augmentin] AdvReac Abdominal Verified 05/21/23 08:48 Pain clavulanic acid AdvReac Abdominal Verified 05/21/23 08:48 [From Augmentin] Pain Exam Const: General: alert Orientation/consciousness: patient oriented x3 Resp: Auscultation: clear to auscultation bilaterally Cardio: Rhythm: regular rhythm GI: GI Palp: Yes Soft to palpation and No Tenderness to palpation present (GI) Neuro: General: patient oriented x3 Assessment and Plan Assessment and plan (1) Family history of esophageal cancer: Code(s): Z80.0 - Family history of malignant neoplasm of digestive organs Status: Acute Assessment and Plan: EGD with possible biopsy or dilatation or cautery.
--- NOTE | 2023-06-03 09:47 | SUR.PREOP ---
Patient arrived this morning for her procedure and patient's procedure wasn't approved thru insurance. Case was canceled and patient referred to office for reschedule pending insurance approval.
[2023-06-23 14:53] VITALS: BMI 37.2
--- NOTE | 2023-07-01 17:20 | PM.HPGS ---
History of Present Illness History of Present Illness Consent: Risks, benefits, and alternatives have been discussed and questions answered. Patient agrees to proceed with procedure. Chief complaint: family hx of esophageal ca Narrative: Julia Pop is a 58 year old female with family history of esophageal cancer Review of Systems Review of Systems: All systems reviewed & are unremarkable except as noted in HPI and below PMFSH Past Medical History Medical History GERD (gastroesophageal reflux disease) Hypertension Urinary tract infection Surgical History Surgical History H/O ovarian cystectomy H/O: hysterectomy S/P cholecystectomy Social History Social History Smoking status: Never smoker Alcohol intake: current Substance use: never Substance use type: does not use Living arrangements: with family Spiritual care concerns: No Meds Home Medications and Allergies Home Medications Medication Instructions Recorded Confirmed Type lovastatin 10 mg tablet 10 mg PO QPM 09/15/21 06/24/23 History pantoprazole 40 mg tablet,delayed 40 mg PO DIRECTED 09/15/21 06/24/23 History release famotidine 20 mg tablet 20 mg PO DAILY 08/11/22 06/24/23 History verapamil 240 mg 24 hr 240 mg PO HS 08/11/22 06/24/23 History capsule,extended release cholecalciferol (vitamin D3) 50 50 mcg PO DAILY 05/21/23 06/24/23 History mcg (2,000 unit) capsule (Vitamin D3) vitamin E (dl, acetate) 180 mg 180 mg PO DAILY 05/21/23 06/24/23 History (400 unit) capsule zinc 50 mg capsule 50 mg PO DAILY 05/21/23 06/24/23 History Allergies Allergy/AdvReac Type Severity Reaction Status Date / Time amoxicillin [From Augmentin] AdvReac Abdominal Verified 07/02/23 06:54 Pain clavulanic acid AdvReac Abdominal Verified 07/02/23 06:54 [From Augmentin] Pain Exam Const: General: alert Orientation/consciousness: patient oriented x3 Resp: Auscultation: clear to auscultation bilaterally Cardio: Rhythm: regular rhythm GI: GI Palp: Yes Soft to palpation and No Tenderness to palpation present (GI) Neuro: General: patient oriented x3 Assessment and Plan Assessment and plan (1) Family history of esophageal cancer: Code(s): Z80.0 - Family history of malignant neoplasm of digestive organs Status: Acute Assessment and Plan: EGD with possible biopsy or dilatation or cautery.
[2023-07-02 06:58] VITALS: BP 155/81; PULSE 82; RESP 18; TEMP 36.7; O2SAT 99
[2023-07-02] MEDS: LACTATED RINGERS 1,000 ML 150 ML IV CONT (07:08)
--- NOTE | 2023-07-02 07:55 | WPDANESEPPF ---
Anes - Initial Pre Proc Eval Procedure: Operation Date: 07/02/23 08:00 Proposed Procedures p Esophagogastroduodenoscopy - Rome Mancia MD Date/Time: 07/02/23 07:55 Surgeon: Rome Mancia MD Pre Op Diagnosis: family hx of esophageal ca Patient Data Age: 58 Gender: F Height: 1.52 m Weight: 84 kg Last Vital Signs Temp 98.1 F 07/02/23 06:58 Pulse 82 07/02/23 06:58 Resp 18 07/02/23 06:58 BP 155/81 H 07/02/23 06:58 Pulse Ox 99 07/02/23 06:58 O2 Del Method Room Air 07/02/23 06:58 Allergies Allergy/AdvReac Type Severity Reaction Status Date / Time amoxicillin [From Augmentin] AdvReac Abdominal Verified 07/02/23 06:54 Pain clavulanic acid AdvReac Abdominal Verified 07/02/23 06:54 [From Augmentin] Pain Home Medications Medication Instructions Recorded Confirmed Type lovastatin 10 mg tablet 10 mg PO QPM 09/15/21 06/24/23 History pantoprazole 40 mg tablet,delayed 40 mg PO DIRECTED 09/15/21 06/24/23 History release famotidine 20 mg tablet 20 mg PO DAILY 08/11/22 06/24/23 History verapamil 240 mg 24 hr 240 mg PO HS 08/11/22 06/24/23 History capsule,extended release cholecalciferol (vitamin D3) 50 50 mcg PO DAILY 05/21/23 06/24/23 History mcg (2,000 unit) capsule (Vitamin D3) vitamin E (dl, acetate) 180 mg 180 mg PO DAILY 05/21/23 06/24/23 History (400 unit) capsule zinc 50 mg capsule 50 mg PO DAILY 05/21/23 06/24/23 History Patient hx anesthesia problems: none Family hx anesthesia problems: none Results Review: All pre-operative results and documents have been reviewed as part of the pre-operative evaluation. [facility] Past Medical History Medical History GERD (gastroesophageal reflux disease) Hypertension Urinary tract infection Surgical History Surgical History H/O ovarian cystectomy H/O: hysterectomy S/P cholecystectomy Social History Social History Smoking status: Never smoker Alcohol intake: current Substance use: never Substance use type: does not use Living arrangements: with family Spiritual care concerns: No Anes - Eval Final PreProcedure Day of Procedure 07/02/23 07:55 Patient weight: obese Heart: regular rate and rhythm Lungs: clear to auscultation Airway: Mallampati scale class III Neurological: alert and oriented Last oral intake: >/= 8 hours ASA classification: II Emergent: no Anesthetic plan: proceed Anesthesia type and monitoring: general GIVS and standard monitoring Results Review: All pre-operative results and documents have been reviewed as part of the pre-operative evaluation. Informed Consent: The patient's anesthetic plan and its attendant risks and benefits were discussed with the patient/family/POA. Questions were solicited and answers provided to the satisfaction of the patient/family/POA.
[2023-07-02 08:06] VITALS: BP 142/75; PULSE 78; RESP 18; O2SAT 100
[2023-07-02 08:16] VITALS: BP 132/77; PULSE 74; RESP 18; O2SAT 99
[2023-07-02 08:26] VITALS: BP 149/80; PULSE 70; RESP 16; O2SAT 100
--- NOTE | 2023-07-02 09:00 | SUR.OPER ---
EGD ended at 0854. Colonoscopy started at 0900.
== END 2023-07-02 08:33 | disposition home or self-care (01) ==
PROVIDERS: PCP Internal Medicine; Visit Provider Internal Medicine Gastroenterology
PROC: 0DJ08ZZ Inspection of Upper Intestinal Tract, Via Natural or Artificial Opening Endoscopic (ICD-10-PCS; CPT 43235; principal; 2023-07-02 08:00)
DX: K21.9 Gastro-esophageal reflux disease without esophagitis (principal); K31.7 Polyp of stomach and duodenum; I10 Essential (primary) hypertension; Z80.0 Family history of malignant neoplasm of digestive organs
CPT/HCPCS: 43239; 88305; J2704; J7120

== ENCOUNTER 2023-10-28 09:15 | Outpatient (CLI) | payer BC, OTHER, SELFPAY ==
--- NOTE | ~2023-10-28 | MM_ITS ---
EXAMINATION: MM screening antoinette BI w yaneth HISTORY: Screening mammogram TECHNIQUE: Craniocaudal and mediolateral oblique 3-D tomosynthesis images were obtained and synthetic 2-D images were generated. CAD analysis was submitted and interpreted. COMPARISON: 10/19/2022, 10/14/2021 BREAST PARENCHYMAL COMPOSITION: The breasts are heterogeneously dense, which may obscure small masses . FINDINGS: Biopsy markers on the left; history of prior benign left breast biopsies. There is no evide nce of suspicious mass, calcification, or architectural distortion to suggest malignancy in either br east. There has been no suspicious interval change. IMPRESSION: 1. No mammographic evidence of malignancy. 2. Recommend routine screening mammography in one year. BI-RADS Category 1: Negative Reviewed, dictated and finalized at location A. OW TINTER
== END 2023-10-28 09:16 | disposition home or self-care (01) ==
LOC: CHSIMG 09:17
PROVIDERS: PCP Internal Medicine; Visit Provider Internal Medicine
DX: Z12.31 Encounter for screening mammogram for malignant neoplasm of breast (principal)
CPT/HCPCS: 77063; 77067

== ENCOUNTER 2024-01-07 08:50 | Outpatient (CLI) | payer BC, OTHER, SELFPAY ==
[2024-01-07 09:14] LABS: Basophils Absolute Auto 0.03 K/mm3 (0.00-0.10); Basophils Percent Auto 0.7 % (0.0-1.0); Eosinophils Absolute Auto 0.12 K/mm3 (0.02-0.50); Hematocrit 40.9 % (35.0-49.0); Hemoglobin 13.5 g/dL (12.0-15.0); Immature Granulocyte Absolute 0.01 K/mm3 (0.00-0.00); Immature Granulocyte Percent A 0.2 % (0.0-0.0); Lymphocytes Absolute Auto 0.83 K/mm3 (1.10-4.50); Lymphocytes Percent Auto 20.6 % (18.0-42.0); Mean Platelet Volume 10.8 fl (9.2-11.8); Monocytes Absolute Auto 0.38 K/mm3 (0.10-0.90); Monocytes Percent Auto 9.5 % (2.0-11.0); Neutrophils Absolute Auto 2.7 K/mm3 (1.7-7.2); Platelet Count Result 195 K/mm3 (150-420); Red Blood Count 4.65 M/mm3 (4.20-5.40); Red Cell Distribution Width 13.2 % (11.6-14.4)
[2024-01-07 09:33] LABS: Appearance Urine Slightly Cloudy (Clear); Bilirubin Urine 1+ (Negative); Blood Urine 2+ (Negative); Color Urine Yellow (Yellow); Glucose Urine UA Negative (Negative); Ketones Urine Negative (Negative); Leukocyte Esterase Ur Negative (Negative); Nitrate Urine Negative (Negative); Protein Urine Trace (Negative); Specific Grav Ur 1.025 (1.010-1.020); Urobilinogen Urine 0.2 mg/dL (0.2-1.0)
[2024-01-07 09:38] LABS: Creatinine Urine 336.53 mg/dL (40-278); Hemoglobin A1C 7.1 % (<5.7); MALB Creatinine Ratio 7.5 mg/g (0-30); Microalbumin Urine Random 25.3 mg/L
[2024-01-07 09:45] LABS: Add Urine Microscopic? YES; Bacteria Urine 1+ /hpf; Squamous Epithelial Cell Urine Moderate /hpf (Few); WBC Urine None seen /hpf (0-3)
[2024-01-07 10:20] LABS: Alanine Aminotransferase 63 U/L (14-59); Albumin Level 3.8 g/dL (3.4-5.0); Alkaline Phosphatase 58 U/L (46-116); Anion Gap 11 mmol/L (8-16); Aspartate Amino Transferase 33 U/L (15-37); Bilirubin,Total 0.5 mg/dL (0.00-1.00); Blood Urea Nitrogen 11 mg/dL (7-18); Calcium 8.8 mg/dL (8.5-10.1); Carbon Dioxide 28 mmol/L (21-32); Chloride 100 mmol/L (98-108); Cholesterol 200 mg/dL (0-200); Estimated Glomerular Filt Rate > 60; Free T3 2.84 pg/mL (2.18-3.98); Free T4 Free Thyroxine 1.04 ng/dL (0.76-1.46); Glucose 152 mg/dL (70-99); HDL Direct 56 mg/dL (40-60); LDL Cholesterol Calculated 117 mg/dL (<130); Osmolality Calculated 290 mOsm/kg (285-295); Potassium 3.9 mmol/L (3.5-5.1); Sodium 139 mmol/L (136-145); Thyroid Stimulating Hormone 3.57 uIU/mL (0.36-3.74); Total Protein 7.2 g/dL (6.4-8.2); Triglycerides 133 mg/dL (0-150)
== END 2024-01-07 08:51 | disposition home or self-care (01) ==
LOC: CHSLAB 08:53
PROVIDERS: PCP Internal Medicine; Visit Provider Internal Medicine
DX: Z00.00 Encounter for general adult medical examination without abnormal findings (principal); E11.9 Type 2 diabetes mellitus without complications; I10 Essential (primary) hypertension; R19.7 Diarrhea, unspecified
CPT/HCPCS: 36415; 80053; 80061; 81001; 82043; 83036; 84439; 84443; 84481; 85025

== ENCOUNTER 2024-02-24 15:20 | Outpatient (CLI) | payer BC, OTHER, SELFPAY ==
--- NOTE | ~2024-02-24 | XR_ITS ---
EXAMINATION: XR wrist RT min 3V INDICATION: Right wrist pain TECHNIQUE: Four views of the right wrist are obtained. 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 No acute fracture is id entified. Bone alignment is normal. 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 IMPRESSION: 1. No acute osseous abnormality. Reviewed, dictated and finalized at location F.
== END 2024-02-24 15:21 | disposition home or self-care (01) ==
LOC: ANHIMG 15:22
PROVIDERS: PCP Internal Medicine; Visit Provider Plastic Surgery
DX: R22.31 Localized swelling, mass and lump, right upper limb (principal)
CPT/HCPCS: 73110

== ENCOUNTER 2024-03-03 14:53 | Outpatient (CLI) | payer BC, OTHER, SELFPAY ==
--- NOTE | ~2024-03-03 | US_ITS ---
EXAMINATION: US soft tissue UE RT DATE: 03/03/2024 15:10 INDICATION: Palpable lump at the dorsal right wrist TECHNIQUE: Multiple grayscale and Doppler ultrasound images of the region of concern at the dorsum of the right wrist were obtained. COMPARISON: Radiographs dated 02/24/2024 FINDINGS: The palpable abnormality of concern corresponds to a 6 x 4 mm shadowing likely calcification with smo oth echogenic peripheral margin which appears to correspond to an ossicle dorsal to the second carpom etacarpal joint on the prior radiographs. No abnormal masses or fluid collections identified. IMPRESSION: 1. Palpable abnormality appears to correspond to 6 x 4 mm likely degenerative ossicle with likely cor relate seen at the dorsal aspect the second carpometacarpal joint on the prior radiographs. Reviewed, dictated and finalized at location A. IMPRESSION: 1. Palpable abnormality appears to correspond to 6 x 4 mm likely degenerative o ssicle with likely correlate seen at the dorsal aspect the second carpometacarp al joint on the prior radiographs.
== END 2024-03-03 14:54 | disposition home or self-care (01) ==
LOC: CHSIMG 14:55
PROVIDERS: PCP Internal Medicine; Visit Provider Plastic Surgery
DX: R22.31 Localized swelling, mass and lump, right upper limb (principal)
CPT/HCPCS: 76882

== ENCOUNTER 2024-08-02 14:35 | Outpatient (CLI) | payer BC, OTHER, SELFPAY ==
--- NOTE | ~2024-08-02 | XR_ITS ---
Clinical Indication: Chronic cough PA and lateral views of the chest: Comparison: 08/02/2022 Findings: The lungs are clear, without evidence of focal consolidation or pleural effusion. Cardiome diastinal silhouette is within normal limits. Bones and soft tissues are unremarkable. Impression: Normal chest. Reviewed, dictated and finalized at location . Impression: Normal chest.
== END 2024-08-02 14:36 | disposition home or self-care (01) ==
LOC: CHSIMG 14:39
PROVIDERS: PCP Internal Medicine; Visit Provider Internal Medicine
DX: R05.9 Cough, unspecified (principal)
CPT/HCPCS: 71046

== ENCOUNTER 2024-08-25 09:52 | Outpatient (CLI) | payer BC, OTHER, SELFPAY | END 2024-08-25 09:53 | disposition home or self-care (01) | LOC: CHSCARD 09:54 | PROVIDERS: PCP Internal Medicine; Visit Provider Internal Medicine | DX: R05.9 Cough, unspecified (principal); R94.2 Abnormal results of pulmonary function studies | CPT/HCPCS: 94060; 94726; 94729 ==

== ENCOUNTER 2024-10-13 09:30 | Outpatient (RCR) | payer BC, OTHER, SELFPAY | END 2024-10-31 10:57 | disposition home or self-care (01) | LOC: ANHDMC 09:30 | PROVIDERS: PCP Internal Medicine; Visit Provider Nurse Practitioner Family | DX: E11.65 Type 2 diabetes mellitus with hyperglycemia (principal); Z71.89 Other specified counseling | CPT/HCPCS: G0108 ==

== ENCOUNTER 2024-10-31 18:35 | Emergency (ER) | payer BC, OTHER, SELFPAY ==
[2024-10-31 18:36] VITALS: BP 169/97; PULSE 96; RESP 18; TEMP 36.6; O2SAT 100
--- NOTE | 2024-10-31 18:47 | PC.NURSE ---
patient reports last time she vomited was around 1700
--- NOTE | 2024-10-31 19:00 | ED.NAVMDI ---
HPI - Nausea/Vomiting/Diarrhea General Chief complaint: Nausea/Vomiting/Diarrhea Stated complaint: throwing up Time Seen by Provider: 10/31/24 18:58 Source: patient Mode of arrival: ambulatory Limitations: no limitations History of Present Illness HPI Narrative: 59 years old white female came to the ED with nausea, vomiting and diarrhea, not feeling well after having mounjaro shot yesterday. Patient had similar symptoms last week after receiving Mounjaro shot. Patient started on mounjaro 5 weeks ago. She denies any abdominal pain, chest pain or shortness of breath or respiratory symptoms. No fever or chills. Related Data Home Medications Medication Instructions Recorded Confirmed lovastatin 10 mg tablet 10 mg PO QPM 09/15/21 10/31/24 pantoprazole 40 mg tablet,delayed 40 mg PO DIRECTED 09/15/21 10/31/24 release famotidine 20 mg tablet 20 mg PO DAILY 08/11/22 10/31/24 verapamil 240 mg 24 hr 240 mg PO HS 08/11/22 10/31/24 capsule,extended release cholecalciferol (vitamin D3) 50 50 mcg PO DAILY 05/21/23 10/31/24 mcg (2,000 unit) capsule (Vitamin D3) vitamin E (dl, acetate) 180 mg 180 mg PO DAILY 05/21/23 10/31/24 (400 unit) capsule zinc 50 mg capsule 50 mg PO DAILY 05/21/23 10/31/24 tirzepatide 2.5 mg/0.5 mL 2.5 mg subcut WEEKLY 10/31/24 10/31/24 subcutaneous pen injector (Mounjaro) Allergies Allergy/AdvReac Type Severity Reaction Status Date / Time amoxicillin [From Augmentin] AdvReac Abdominal Verified 10/31/24 18:42 Pain clavulanic acid AdvReac Abdominal Verified 10/31/24 18:42 [From Augmentin] Pain Review of Systems Review of Systems: All systems reviewed & are unremarkable except as noted in HPI and below PMFSH Past Medical History Medical History GERD (gastroesophageal reflux disease) Hypertension Urinary tract infection Surgical History Surgical History H/O ovarian cystectomy H/O: hysterectomy S/P cholecystectomy Social History Social History Smoking status: Never smoker Alcohol intake: current Substance use: never Substance use type: does not use Do You Feel Safe in your Home?: Yes Lack of Transportation: No Lack of Food: Never True Current Housing: Decline to Answer Concerned About Future Housing: Decline to Answer Difficulty Paying Gas/Electric Bills: Decline to Answer Difficulty Paying for Meds: Decline to Answer Currently Unemployed: No Education: High School Diploma/GED Living arrangements: with family Spiritual care concerns: No Exam Narrative: General appearance: Well-developed, well-nourished Skin: Normal color Head: Normocephalic, nontraumatic Eyes: Clear conjunctiva ENT: Oropharynx normal, ears normal, nose normal Neck: Supple, nontender Chest and respiratory: Airway patent, no respiratory distress, no accessory muscle use Heart: Regular rate/rhythm Abdomen: Soft, nontender, no organomegaly, quiet bowel sounds Vascular: Normal peripheral pulses, normal capillary refill. Musculoskeletal: Normal range of motion, nontender back Neurologic: Alert and oriented ?3, MEDICAL MANAGEMENT TRAINER is normal as tested, no gross motor deficit Course Vital Signs Vital signs: Vital Signs Temperature 36.6 C 10/31/24 18:36 Pulse Rate 96 10/31/24 18:36 Respiratory Rate 18 10/31/24 18:36 Blood Pressure 169/97 H 10/31/24 18:36 Pulse Oximetry 100 10/31/24 18:36 Oxygen Delivery Room Air 10/31/24 18:36 Temperature 36.6 C 10/31/24 18:36 Pulse Rate 96 10/31/24 18:36 Respiratory Rate 18 10/31/24 18:36 Blood Pressure 169/97 H 10/31/24 18:36 Pulse Oximetry 100 10/31/24 18:36 Oxygen Delivery Room Air 10/31/24 18:36 MDM - Nausea/Vomiting/Diarrhea MDM Narrative Medical decision making narrative: PATIENT CAME TO THE ED WITH NAUSEA, VOMITING AND DIARRHEA AFTER TAKING MOUNJARO YESTERDAY PATIENT HAD SIMILAR SYMPTOMS LAST WEEK AFTER TAKEN MOUNJARO BLOOD WORKUP TODAY INCLUDES CBC AND CMP SHOWED NO ACUTE ABNORMALITIES URINALYSIS SHOWED NO SIGN OF INFECTION PATIENT RECEIVED 1 L OF NORMAL SALINE 8 MG OF ZOFRAN IV WITH REMARKABLE IMPROVEMENT PATIENT WAS ADVISED TO STOP TAKING MOUNJARO Differential Diagnosis Differential diagnosis: Likely other ( DEHYDRATION, ELECTROLYTE IMBALANCE, URINARY TRACT INFECTION, MEDICATION SIDE EFFECTS) Medical Records Attestation: I reviewed the patient's medical records. Lab Data Attestation: I reviewed the patient's lab results. 10/31/24 19:21 10/31/24 19:21 Labs: Lab Results 10/31/24 10/31/24 Range/Units 19:21 20:15 WBC 10.9 H (4.8-10.8) K/mm3 RBC 4.99 (4.20-5.40) M/mm3 Hgb 14.8 (12.0-15.0) g/dL Hct 43.5 (35.0-49.0) % MCV 87.2 (78.0-102.0) fL MCH 29.7 (27.0-31.0) pg MCHC 34.0 (32-36) g/dL RDW 12.7 (11.6-14.4) % Plt Count 223 (150-420) K/mm3 MPV 11.5 (9.2-11.8) fl Immature Gran % (Auto) 0.3 H (0.0-0.0) % Neut % (Auto) 82.0 H (50.0-70.0) % Lymph % (Auto) 8.2 L (18.0-42.0) % [place] % (Auto) 5.4 (2.0-11.0) % Eos % (Auto) 3.9 (1.0-6.0) % Baso % (Auto) 0.2 (0.0-1.0) % Lymph # (Auto) 0.89 L (1.10-4.50) K/mm3 [place] # (Auto) 0.59 (0.10-0.90) K/mm3 Eos # (Auto) 0.42 (0.02-0.50) K/mm3 Baso # (Auto) 0.02 (0.00-0.10) K/mm3 Abs Immat Gran (auto) 0.03 H (0.00-0.00) K/mm3 Absolute Neuts (auto) 8.90 H (1.70-7.20) K/mm3 Absolute Nucleated RBC 0.00 (0.00-0.00) K/mm3 Nucleated RBC % 0.0 (0-0.0) % Sodium 137 (136-145) mmol/L Potassium 3.5 (3.5-5.1) mmol/L Chloride 101 (98-108) mmol/L Carbon Dioxide 26 (21-32) mmol/L Anion Gap 10 (4-12) mmol/L BUN 15 (7-18) mg/dL Creatinine 0.93 (0.55-1.02) mg/dL Estim Creat Clear Calc 55 ml/min Estimated GFR > 60 (59 - ) Glucose 124 H (70-99) mg/dL Calculated Osmolality 285 (285-295) mOsm/kg Calcium 9.6 (8.5-10.1) mg/dL Total Bilirubin 0.7 (0.00-1.00) mg/dL AST 20 (15-37) U/L ALT 37 (14-59) U/L Alkaline Phosphatase 70 (46-116) U/L Total Protein 8.1 (6.4-8.2) g/dL Albumin 4.0 (3.4-5.0) g/dL Urine Color Yellow (Yellow) Urine Appearance Clear (Clear) Urine pH 5.5 (5.0-8.0) Ur Specific [place] 1.025 H (1.010-1.020) Urine Protein Trace H (Negative) Urine Glucose (UA) Negative (Negative) Urine Ketones 1+ H (Negative) Ur Blood (Man) Trace-intact H (Negative) Urine Nitrate Negative (Negative) Urine Bilirubin 1+ H (Negative) Urine Urobilinogen 0.2 (0.2-1.0) mg/dL Leukocyte Esterase Rfl Negative (Negative) ANA PAULA/UL Urine RBC 6-10 H (0-2) /hpf Urine WBC 0-3 (0-3) /hpf Ur Squamous Epith Cells Many H (Few) /hpf Urine Bacteria 2+ H (None) /hpf Urine Mucus Rare /lpf Critical Care Time Critical Care Time Critical Care Time: No Discharge Plan Discharge Clinical Impression: Medication adverse effect Patient Disposition: Home, Self-Care Condition: Improved Instructions: Acute Nausea and Vomiting (ED), Adverse Drug Reaction (ED) Additional Instructions: DISCHARGE INSTRUCTIONS RETURN IF SYMPTOMS ARE WORSENING , CALL YOUR FAMILY PHYSICIAN FOR APPOINTMENT, TAKE TYLENOL NEEDED FOR ACHES AND PAIN, CONTINUE HOME MEDICATIONS. STOP USING MUONJARO Prescriptions: No Action lovastatin 10 mg tablet 10 mg PO QPM pantoprazole 40 mg tablet,delayed release (DR/EC) 40 mg PO DIRECTED Rx Instructions: afternoon Mounjaro 2.5 mg/0.5 mL pen injector 2.5 mg SUBCUT WEEKLY famotidine 20 mg tablet 20 mg PO DAILY verapamil 240 mg capsule,ext rel. pellets 24 hr 240 mg PO HS zinc 50 mg Capsule 50 mg PO DAILY cholecalciferol (vitamin D3) [Vitamin D3] 50 mcg (2,000 unit) Capsule 50 mcg PO DAILY vitamin E (dl, acetate) 180 mg (400 unit) Capsule 180 mg PO DAILY Follow-up/Referrals: George Claros MD [Primary Care Provider] -
[2024-10-31 19:24] LABS: Basophils Absolute Auto 0.02 K/mm3 (0.00-0.10); Basophils Percent Auto 0.2 % (0.0-1.0); Eosinophils Absolute Auto 0.42 K/mm3 (0.02-0.50); Eosinophils Percent Auto 3.9 % (1.0-6.0); Hematocrit 43.5 % (35.0-49.0); Hemoglobin 14.8 g/dL (12.0-15.0); Immature Granulocyte Absolute 0.03 K/mm3 (0.00-0.00); Immature Granulocyte Percent A 0.3 % (0.0-0.0); Lymphocytes Absolute Auto 0.89 K/mm3 (1.10-4.50); Lymphocytes Percent Auto 8.2 % (18.0-42.0); Mean Corpuscular Hemoglobin 29.7 pg (27.0-31.0); Mean Corpuscular Volume 87.2 fL (78.0-102.0); Mean Platelet Volume 11.5 fl (9.2-11.8); Monocytes Absolute Auto 0.59 K/mm3 (0.10-0.90); Monocytes Percent Auto 5.4 % (2.0-11.0); Platelet Count Result 223 K/mm3 (150-420); Red Blood Count 4.99 M/mm3 (4.20-5.40); Red Cell Distribution Width 12.7 % (11.6-14.4); White Blood Count 10.9 K/mm3 (4.8-10.8)
[2024-10-31] MEDS: SODIUM CHLORIDE 0.9% IV 1,000 ML 999 ML IV CONT (19:43)
[2024-10-31] MEDS: ONDANSETRON INJ 4 MG/2 ML VIAL 8 MG IV PUSH (19:43)
[2024-10-31 19:46] LABS: Alanine Aminotransferase 37 U/L (14-59); Alkaline Phosphatase 70 U/L (46-116); Anion Gap 10 mmol/L (4-12); Aspartate Amino Transferase 20 U/L (15-37); Bilirubin,Total 0.7 mg/dL (0.00-1.00); Blood Urea Nitrogen 15 mg/dL (7-18); Calcium 9.6 mg/dL (8.5-10.1); Carbon Dioxide 26 mmol/L (21-32); Chloride 101 mmol/L (98-108); Estimated CRCL calculation 55 ml/min; Estimated Glomerular Filt Rate > 60; Glucose 124 mg/dL (70-99); Osmolality Calculated 285 mOsm/kg (285-295); Potassium 3.5 mmol/L (3.5-5.1); Sodium 137 mmol/L (136-145); Total Protein 8.1 g/dL (6.4-8.2)
--- NOTE | 2024-10-31 19:49 | PC.NURSE ---
patient awake and alert, visitor at bedside. patient medicated per order, see MAR. update provided and lights dimmed for comfort. patient denies further needs. call light within reach.
[2024-10-31 20:18] LABS: Add Urine Microscopic? YES; Appearance Urine Clear (Clear); Bilirubin Urine 1+ (Negative); Blood Urine Trace-intact (Negative); Color Urine Yellow (Yellow); Glucose Urine UA Negative (Negative); Ketones Urine 1+ (Negative); Leukocyte Esterase Ur Negative LEU/UL (Negative); Nitrate Urine Negative (Negative); Protein Urine Trace (Negative); Specific Grav Ur 1.025 (1.010-1.020); Urobilinogen Urine 0.2 mg/dL (0.2-1.0); pH Urine 5.5 (5.0-8.0)
[2024-10-31 20:24] LABS: Bacteria Urine 2+ /hpf; Squamous Epithelial Cell Urine Many /hpf (Few); WBC Urine 0-3 /hpf (0-3)
[2024-10-31 20:25] LABS: Mucus Urine Rare /lpf
--- NOTE | 2024-10-31 20:41 | PC.NURSE ---
patient checked, awake and alert without distress resting on stretcher in ED 3 with visitor at bedside. patient denies needs, reports improvement in her nausea. call light within reach, update provided.
[2024-10-31 21:05] VITALS: BP 176/83; PULSE 88; RESP 18; TEMP 37.2; O2SAT 100
== END 2024-10-31 21:08 | disposition home or self-care (01) ==
PROVIDERS: Emergency Provider Emergency Medicine; PCP Internal Medicine
DX: R11.2 Nausea with vomiting, unspecified (principal); T50.995A Adverse effect of other drugs, medicaments and biological substances, initial encounter; I10 Essential (primary) hypertension; Z79.899 Other long term (current) drug therapy
CPT/HCPCS: 36415; 80053; 81001; 85025; 96361; 96374; 99284; J2405; J7030

== ENCOUNTER 2024-11-03 12:41 | Outpatient (CLI) | payer BC, OTHER, SELFPAY ==
--- NOTE | ~2024-11-03 | MM_ITS ---
EXAMINATION: MM screening antoinette BI w yaneth HISTORY: Screening TECHNIQUE: Craniocaudal and mediolateral oblique 3-D tomosynthesis images were obtained and synthetic 2-D images were generated. CAD analysis was submitted and interpreted. COMPARISON: Comparison to multiple prior studies sequentially, with oldest reviewed study dated 09/30. BREAST PARENCHYMAL COMPOSITION: The breasts are heterogeneously dense, which may obscure small masses . FINDINGS: There is no evidence of suspicious mass, calcification, or architectural distortion to sugg est malignancy in either breast. There has been no suspicious interval change. IMPRESSION: 1. No mammographic evidence of malignancy. 2. Recommend routine screening mammography in one year. BI-RADS Category 1: Negative Reviewed, dictated and finalized at location B. IFICATION ENGINEER
== END 2024-11-03 12:42 | disposition home or self-care (01) ==
LOC: CHSIMG 12:43
PROVIDERS: PCP Internal Medicine; Visit Provider Internal Medicine
DX: Z12.31 Encounter for screening mammogram for malignant neoplasm of breast (principal)
CPT/HCPCS: 77063; 77067

== ENCOUNTER 2024-12-16 05:36 | Emergency (ER) | payer BC, OTHER, SELFPAY ==
--- NOTE | ~2024-12-16 | XR_ITS ---
EXAMINATION: XR chest 1V portable DATE: 12/16/2024 06:25 INDICATION: Cough and congestion. TECHNIQUE: A single frontal view of the chest was obtained. COMPARISON: Chest 2 views 08/02/2024 FINDINGS: There is no pneumonia, pleural effusion, or pneumothorax. The heart size is normal. Surgica l clips in the right upper quadrant are likely from cholecystectomy. IMPRESSION: 1. No acute cardiopulmonary disease. Reviewed, dictated and finalized at location A. UARD FIXER
[2024-12-16 05:39] VITALS: BP 135/80; PULSE 92; RESP 16; TEMP 37.9; O2SAT 98
--- NOTE | 2024-12-16 05:55 | PC.NURSE ---
DR PIERRE AT THE BEDSIDE
--- NOTE | 2024-12-16 06:02 | ED_ITS ---
HPI - URI/Sore Throat General Chief Complaint: Upper Respiratory Infection Stated Complaint: Nausea/ Body Aches Source: patient and family Mode of arrival: ambulatory Limitations: no limitations History of Present Illness HPI Narrative: this is a 59-year-old female with history of hypertension and acid reflux presents with a 2 day history of cough congestion with co-worker recently diagnosed with RSV, the patient has no shortness of breath no chest pain does have nasal congestion with drainage and fever 100.2 has taken Tylenol prior to arrival to the ER. Otherwise there is no nausea vomiting no diarrhea con stipation. MD elicited complaint: fever, cough and nasal congestion Onset (ago): day(s) Consistency: constant Severity: mild Description of mucous: clear Related Data Home Medications ?Medication ?Instructions ?Recorded ?Confirmed ?Last Taken ?Type lovastatin 10 mg tablet 10 mg PO QPM 09/15/21 12/16/24 01/17/22 History pantoprazole 40 mg tablet,delayed 40 mg PO DIRECTED 09/15/21 12/16/24 01/17/22 History release famotidine 20 mg tablet 20 mg PO DAILY 08/11/22 12/16/24 Unknown History verapamil 240 mg 24 hr 240 mg PO HS 08/11/22 12/16/24 Unknown History capsule,extended release Allergies Allergy/AdvReac Type Severity Reaction Status Date / Time amoxicillin (From Augmentin) AdvReac Abdominal Verified 12/16/24 06:11 Pain clavulanic acid (From AdvReac Abdominal Verified 12/16/24 06:11 Augmentin) Pain Review of Systems Review of Systems: All systems reviewed & are unremarkable except as noted in HPI and below PMFSH Past Medical History Medical History Urinary tract infection Hypertension GERD (gastroesophageal reflux disease) Surgical History Surgical History H/O ovarian cystectomy S/P cholecystectomy H/O: hysterectomy Social History Social History Smoking status: Never smoker Alcohol intake: current Substance use: never Substance use type: does not use Do You Feel Safe in your Home?: Yes Lack of Transportation: No Lack of Food: Never True Current Housing: Decline to Answer Concerned About Future Housing: Decline to Answer Difficulty Paying Gas/Electric Bills: Decline to Answer Difficulty Paying for Meds: Decline to Answer Currently Unemployed: No Education: High School Diploma/GED Living arrangements: with family Spiritual care concerns: No Exam Const: General: healthy appearing and no acute distress Nutritional Appearance: well nourished Orientation/consciousness: patient oriented x3 Limitations: no limitations HENMT: Head: normal to inspection Eyes: Conjunctivae: conjunctivae normal Pupils: Equal, round and reactive pupils present EOM: EOMs intact bilaterally Neck: Neck: normal visual inspection Chest: Chest palpation & inspection: normal inspection of the chest Resp: Effort & Inspection: normal respiratory effort Auscultation: clear to auscultation bilaterally Cardio: Rate: regular rate Rhythm: regular rhythm GI: GI Palp: Yes Soft to palpation Auscultation: normal bowel sounds Skin: General skin exam: normal color Rashes: no rashes Neuro: General: patient oriented x3, moves all extremities and no meningeal signs Extrem: General: normal to inspection and no clubbing, cyanosis or edema Course Course Emergency Course: COVID RSV and influenza performed and reviewed, x-ray performed reviewed with patient and family. Vital Signs Vital signs: Vital Signs Temperature 37.9 C H 12/16/24 05:39 Pulse Rate 92 12/16/24 05:39 Respiratory Rate 16 12/16/24 05:39 Blood Pressure 135/80 12/16/24 05:39 Pulse Oximetry 98 12/16/24 05:39 Oxygen Delivery Room Air 12/16/24 05:39 Temperature 37.8 C H 12/16/24 06:52 Pulse Rate 90 12/16/24 06:52 Respiratory Rate 18 12/16/24 06:52 Blood Pressure 130/78 12/16/24 06:52 Pulse Oximetry 97 12/16/24 06:52 Oxygen Delivery Room Air 12/16/24 06:52 MDM - URI/Sore Throat Lab Data Labs: Lab Results 12/16/24 Range/Units 05:51 Influenza A (RT-PCR) Negative (Negative) Influenza B (RT-PCR) Negative (Negative) RSV (RT-PCR) Negative (Negative) SARS-CoV-2 RNA (RT-PCR) Positive A (Negative) Critical Care Time Critical Care Time Critical Care Time: No Discharge Plan Discharge Clinical Impression: COVID-19 Patient Disposition: Home, Self-Care Condition: Stable Instructions: Antibiotic Form, COVID-19 (Coronavirus Disease 2019) (ED) Additional Instructions: take medication as prescribed and follow with primary within the next couple weeks if symptoms persist or worsen. Patient Language: Vietnamese Prescriptions: New Paxlovid 150-100 mg tablets,dose pack See Rx Instructions .ROUTE .COMPLEX Qty: 20 0RF Rx Instructions: orally per package directions No Action lovastatin 10 mg tablet 10 mg PO QPM pantoprazole 40 mg tablet,delayed release (DR/EC) 40 mg PO DIRECTED Rx Instructions: afternoon famotidine 20 mg tablet 20 mg PO DAILY verapamil 240 mg capsule,ext rel. pellets 24 hr 240 mg PO HS Follow-up/Referrals: George Claros MD [Primary Care Provider] - Stand Alone Forms: Work/School Release IP Time of Disposition: 06:43
--- NOTE | 2024-12-16 06:13 | PC.NURSE ---
RETURNED FROM RADIOLOGY
[2024-12-16 06:29] LABS: Influenza A QL RT-PCR Negative (Negative); Influenza B QL RT-PCR Negative (Negative); RSV RNA, RT-PCR Negative (Negative); SARS-CoV-2 RNA PCR Positive (Negative)
--- NOTE | 2024-12-16 06:39 | PC.NURSE ---
COVID PRECAUTIONS PLACED. MASK GIVEN TO PATIENT AND
[2024-12-16 06:52] VITALS: BP 130/78; PULSE 90; RESP 18; TEMP 37.8; O2SAT 97
--- OUTSIDE RECORDS SUMMARY | 2024-12-22 04:59 | XMS_ITS | Clinical Summary ---
Author Organization [facility] Address [address] Hayesn: Epic Prelude ADT STEPHANIE GONZALEZ [id number] Care Team Providers Care Cold Work Operator Name Role Phone Unavailable Primary Care Provider Unavailabl e Allergies Active Allergy Reactions Criticality Noted Date Comments Cefdinir Rash,Diarrhea Low 08/23/2022 Medications ketorolac tromethamine (ACULAR) 0.5 % solution Instill one drop into affected eye four times daily. Start using 2 days before surgery. 5 mL 1 2 10:39 AM CDT 04/22/20 22 Active prednisoLONE acetate (Pred Forte) 1 % suspension Instill one drop into surgical eye three times daily. Start using after surgery. 10 mL 1 2 10:29 AM CDT 04/22/20 22 Active ofloxacin (OCUFLOX) 0.3 % solution Instill 1 drop into affected eye three times a day. Start using 2 days before surgery. 5 mL 1 2 10:39 AM CDT 04/22/20 22 Active dulaglutide (Trulicity) 0.75 mg/0.5 mL injection Inject 0.5 mL (0.75 mg) by subcutaneous injection every 7 days. 2 mL 2 2:04 PM CDT 08/22/20 22 Active semaglutide (Rybelsus) 3 mg Tablet Take 1 tablet (3 mg) by mouth once daily in the morning 30 minutes before any food, drink or medication with no more than 4 oz plain water. 30 Tablet 3 2:06 PM VP GENETIC 01/22/20 23 Active gabapentin (NEURONTIN) 100 mg capsule Take 1 Capsule (100 mg) by mouth daily. 30 Capsule 3 11:15 AM VP GENETIC 01/30/20 23 Active methylPREDNISolo ne (Medrol, Sonu,) 4 mg Tablets, Dose Pack TAKE DIRECTED ON PACKAGE. 21 Tablet 3 2:11 PM CDT 04/03/20 23 Active fluticasone propionate (FLONASE) 50 mcg/spray [place], Suspension nasal inhaler ADMINISTER 2 SPRAYS IN EACH NOSTRIL DAILY NEEDED 16 Gram 2 3 2:00 PM VP GENETIC 11/03/20 23 Active blood sugar diagnostic (Airship VenturesTouch Ultra Test) Strip Test blood sugar once daily 100 Strip 4 1:07 PM VP GENETIC 12/29/19 24 Active famotidine (PEPCID) 20 mg tablet TAKE ONE TABLET BY MOUTH TWICE DAILY 180 Tablet 03/01/20 24 025 Active venlafaxine (EFFEXOR) 75 mg tablet Take 1 Tablet (75 mg) by mouth daily with food 30 Tablet 1 4 2:47 PM CDT 04/07/20 24 Active methocarbamoL (ROBAXIN) 500 mg tablet Take 1 Tablet (500 mg) by mouth 4 times daily as needed. 20 Tablet 4 2:58 PM CDT 04/11/20 24 Active lovastatin (MEVACOR) 10 mg tablet TAKE ONE TABLET BY MOUTH ONCE DAILY WITH EVENING MEAL 90 Tablet 05/30/20 24 025 Active pantoprazole (PROTONIX) 40 mg Tablet, Delayed Release (E.C.) Take 1 Tablet (40 mg) by mouth daily. 90 Tablet 05/30/20 24 Active verapamiL (CALAN SR) 240 mg Sustained Release tablet TAKE ONE TABLET BY MOUTH AT BEDTIME 90 Tablet 05/30/20 24 Active pantoprazole (PROTONIX) 40 mg Tablet, Delayed Release (E.C.) Take 1 Tablet (40 mg) by mouth daily. 90 Tablet 4 11:17 AM CDT 06/14/20 24 Active famotidine (PEPCID) 40 mg tablet Take 1 Tablet (40 mg) by mouth 2 times daily. 60 Tablet 4 11:35 AM CDT 08/03/20 24 Active pantoprazole (PROTONIX) 40 mg Tablet, Delayed Release (E.C.) Take 1 Tablet (40 mg) by mouth 2 times daily. 90 Tablet 5 2:03 PM VP GENETIC 08/03/20 24 Active verapamiL (CALAN SR) 240 mg Sustained Release tablet Take 1 Tablet (240 mg) by mouth daily at bedtime. 90 Tablet 1 4 12:37 PM VP GENETIC 08/23/20 24 Active Blood-Glucose Meter (OneTouch Ultra2 Meter) Use as directed 1 Each 4 12:32 PM CDT 09/26/20 24 Active pantoprazole (PROTONIX) 40 mg Tablet, Delayed Release (E.C.) Take 1 Tablet (40 mg) by mouth 2 times daily. 90 Tablet 4 11:20 AM VP GENETIC 10/14/20 24 Active nirmatrelvir-rit onavir (Paxlovid) 300(150mg x 2)-100 mg oral pack Take 2 tablets of nirmatrelvir and 1 tablet ritonavir by mouth 2 times per day per package directions for 5 days. 30 Each 5 11:47 AM VP GENETIC 12/16/19 25 Active nirmatrelvir-rit onavir (Paxlovid) 150-100 mg oral pack (renal dosing) ud 20 Each 12/16/19 25 025 Discontin ued(Other ) Encounters Date Type Department Care Team Description 12/06/2024 External Device Data [facility] Provider, Abstract 09/28/2024 External Device Data [facility] Provider, Abstract from Last 3 Months Immunizations Immunization Administration Dates Next Due INFLUENZA VACCINE QUADRIVALENT 6 MOS UP PF IM ,08/23/2022 INFLUENZA VACCINE TRIVALENT SPLIT VIRUS, (6 MOS UP), 0.5ML (PF), IM 08/23/2024 Social History Tobacco Use Types Packs/Day Years Used Date Smoking Tobacco: Never Assessed Comments Unknown Sex and Gender Information Value Date Recorded Sex Assigned at Not on file Legal Sex Female 3:27 PM CDT Gender Identity Not on file Sexual Orientation Not on file Plan of Treatment Health Maintenance Due Date Last Done Comments DTAP/TDAP/TD VACCINES (1 - Tdap) 1985 HEPATITIS B VACCINES (1 of 3 - 19+ 3-dose series) 1985 CERVICAL CANCER SCREENING 1996 BREAST CANCER SCREENING 2006 COLORECTAL SCREENING 2011 Colorectal Cancer Screening 2011 FIT-DNA Q 3 years 2011 FIT/FOBT Q 1 year 2011 Flex Sig/CT Colonography Q 5 years 2011 ZOSTER VACCINE (1 of 2) 2016 INFLUENZA VACCINE Completed 08/23/2024, 09/07/2023, 08/23/2022 PNEUMOCOCCAL VACCINE 0-64 YEARS Aged Out No longer eligible b ased on patient's age to complete this topic Insurance RX [employer] Express RX [employer] (INTERNAL) [facility] RX [employer] Commercial RX GENERIC COMMERCIAL Commercial RX [facility] [place] RX [facility] DATA Medicare Part B
--- OUTSIDE RECORDS SUMMARY | 2024-12-22 04:59 | XMS_ITS | Clinical Summary ---
Author Organization [facility] Address [address] [place] [address]. [place], [place] [id number] [place] [id number] Care Team Providers Care Pm Head Cook Name Role Phone George Claros MD Primary Care Provider Social History Tobacco Use Types Packs/Day Years Used Date Smoking Tobacco: Never Assessed Comments Unknown Sex and Gender Information Value Date Recorded Sex Assigned at Not on file Legal Sex Female 7:27 PM CDT Gender Identity Not on file Sexual Orientation Not on file Plan of Treatment Health Maintenance Due Date Last Done Comments Cervical Cancer Screening Pap Smear (Age 30 to 64) Every 3 Years 1966 Colorectal Cancer Screening Colonoscopy (10 Years) 1966 Annual Physical 1969 Hepatitis C 1984 Hepatitis B Vaccines (1 of 3 - 19+ 3-dose series) 1985 Cervical Cancer Screening Pap with HPV Testing (Age 30 to 64) Every 5 Years 1996 Cervical Cancer Screening with HPV 1996 Mammogram Screening 2006 Zoster Vaccines (1 of 2) 2016 COVID-19 Vaccine (2023- season) 2024 05/11/2021, 04/20/2021 Influenza Adult (#1) 2024 09/07/2023, 08/23/2022, 09/06/2020, Additional history exists DTaP, Tdap and Td Vaccines (2 - Td or Tdap) 09/10/2027 09/10/2017 Meningococcal Vaccine Aged Out No emily radha eligible based on patient's age to complete this topic Pneumococcal Vaccine: Pediatrics (0 to 5 Years) and At-Risk Patients (6 to 64 Years) Aged Out No longer eligible based on patient's age to complete this topic RSV Immunizations Under 20 Months Aged Out No longer eligible based on patient's age to complete this topic Insurance [facility] Care Teams Pm Head Cook Relationship Specialty Start Date End Date George Claros MD [address] [place] [address] PCP - General INTERNAL MEDICINE 08/05/24
== END 2024-12-16 06:52 | disposition home or self-care (01) ==
PROVIDERS: Emergency Provider Emergency Medicine; PCP Internal Medicine
DX: U07.1 COVID-19 (principal); I10 Essential (primary) hypertension; Z79.899 Other long term (current) drug therapy
CPT/HCPCS: 71045; 87637; 99283

== ENCOUNTER 2025-08-04 11:10 | Outpatient (CLI) | payer BC, OTHER, SELFPAY ==
[2025-08-04 11:32] LABS: Hematocrit 42.0 % (35.0-49.0); Hemoglobin 13.5 g/dL (12.0-15.0); Immature Granulocyte Percent A 0.4 % (0.0-0.0); Lymphocytes Absolute Auto 1.39 K/mm3 (1.10-4.50); Mean Corpuscular HGB Conc 32.1 g/dL (32-36); Mean Corpuscular Hemoglobin 28.7 pg (27.0-31.0); Mean Corpuscular Volume 89.2 fL (78.0-102.0); Nucleated Red Blood Cells Absolute Auto 0.00 K/mm3 (0.00-0.00); Nucleated Red Blood Cells Perc 0.0 % (0-0.0); Platelet Count Result 218 K/mm3 (150-420); Red Blood Count 4.71 M/mm3 (4.20-5.40); White Blood Count 5.6 K/mm3 (4.8-10.8)
--- OUTSIDE RECORDS SUMMARY | 2025-08-04 11:35 | XMS_ITS | Clinical Summary ---
Author Organization [facility] Address [address] [place]: Epic Prelude ADT STEPHANIE GONZALEZ [id number] Care Team Providers Care Scrap Charger Name Role Phone Unavailable Primary Care Provider Unavailabl e Allergies Active Allergy Reactions Criticality Noted Date Comments Cefdinir Rash,Diarrhea Low 08/23/2022 Medications ketorolac tromethamine (ACULAR) 0.5 % solution Instill one drop into affected eye four times daily. Start using 2 days before surgery. 5 mL 1 05/21/2022 10:39 AM CDT 2 Active prednisoLONE acetate (Pred Forte) 1 % suspension Instill one drop into surgical eye three times daily. Start using after surgery. 10 mL 1 04/26/2022 10:29 AM CDT 2 Active ofloxacin (OCUFLOX) 0.3 % solution Instill 1 drop into affected eye three times a day. Start using 2 days before surgery. 5 mL 1 05/21/2022 10:39 AM CDT 2 Active dulaglutide (Trulicity) 0.75 mg/0.5 mL injection Inject 0.5 mL (0.75 mg) by subcutaneous injection every 7 days. 2 mL 08/23/2022 2:04 PM CDT 2 Active semaglutide (Rybelsus) 3 mg Tablet Take 1 tablet (3 mg) by mouth once daily in the morning 30 minutes before any food, drink or medication with no more than 4 oz plain water. 30 Tablet 01/28/2023 2:06 PM PELT SALTER 3 Active gabapentin (NEURONTIN) 100 mg capsule Take 1 Capsule (100 mg) by mouth daily. 30 Capsule 01/30/2023 11:15 AM PELT SALTER 3 Active methylPREDNISolo ne (Medrol, Sonu,) 4 mg Tablets, Dose Pack TAKE DIRECTED ON PACKAGE. 21 Tablet 04/07/2023 2:11 PM CDT 3 Active fluticasone propionate (FLONASE) 50 mcg/spray [place], Suspension nasal inhaler ADMINISTER 2 SPRAYS IN EACH NOSTRIL DAILY NEEDED 16 Gram 2 11/04/2023 2:00 PM PELT SALTER 3 Active blood sugar diagnostic (OneTouch Ultra Test) Strip Test blood sugar once daily 100 Strip 12/30/2023 1:07 PM PELT SALTER 4 Active venlafaxine (EFFEXOR) 75 mg tablet Take 1 Tablet (75 mg) by mouth daily with food 30 Tablet 1 04/11/2024 2:47 PM CDT 4 Active methocarbamoL (ROBAXIN) 500 mg tablet Take 1 Tablet (500 mg) by mouth 4 times daily as needed. 20 Tablet 04/11/2024 2:58 PM CDT 4 Active pantoprazole (PROTONIX) 40 mg Tablet, Delayed Release (E.C.) Take 1 Tablet (40 mg) by mouth daily. 90 Tablet 4 Active pantoprazole (PROTONIX) 40 mg Tablet, Delayed Release (E.C.) Take 1 Tablet (40 mg) by mouth daily. 90 Tablet 06/14/2024 11:17 AM CDT 4 Active famotidine (PEPCID) 40 mg tablet Take 1 Tablet (40 mg) by mouth 2 times daily. 60 Tablet 08/06/2024 11:35 AM CDT 4 Active pantoprazole (PROTONIX) 40 mg Tablet, Delayed Release (E.C.) Take 1 Tablet (40 mg) by mouth 2 times daily. 90 Tablet 12/08/2024 2:03 PM PELT SALTER 4 Active verapamiL (CALAN SR) 240 mg Sustained Release tablet Take 1 Tablet (240 mg) by mouth daily at bedtime. 90 Tablet 1 11/24/2024 12:37 PM PELT SALTER 4 Active Blood-Glucose Meter (OneTouch Ultra2 Meter) Use as directed 1 Each 09/27/2024 12:32 PM CDT 4 Active pantoprazole (PROTONIX) 40 mg Tablet, Delayed Release (E.C.) Take 1 Tablet (40 mg) by mouth 2 times daily. 90 Tablet 10/21/2024 11:20 AM PELT SALTER 4 Active nirmatrelvir-rit onavir (Paxlovid) 300(150mg x 2)-100 mg oral pack Take 2 tablets of nirmatrelvir and 1 tablet ritonavir by mouth 2 times per day per package directions for 5 days. 30 Each 12/17/2024 11:47 AM PELT SALTER 5 Active verapamiL (CALAN SR) 240 mg Sustained Release tablet Take 1 Tablet (240 mg) by mouth daily at bedtime. 90 Tablet 05/08/2025 9:46 AM CDT 5 Active pantoprazole (PROTONIX) 40 mg Tablet, Delayed Release (E.C.) Take 1 Tablet (40 mg) by mouth 2 times daily. 90 Tablet 07/07/2025 11:49 AM CDT 5 Active Encounters Date Type Department Care Team Description 05/23/2025 External Device Data [facility] Provider, Abstract [...] of 3 - 19+ 3-dose series) 1985 HPV/Cotest (21-29) 1987 CERVICAL CANCER SCREENING 1996 HPV/Cotest (30-65) 1996 PAP SMEAR 1996 BREAST CANCER SCREENING 2006 COLORECTAL SCREENING 2011 Colorectal Cancer Screening 2011 FIT-DNA Q 3 years 2011 FIT/FOBT Q 1 year 2011 Flex Sig/CT Colonography Q 5 years 2011 ZOSTER VACCINE (1 of 2) 2016 INFLUENZA VACCINE (#1) 2025 4, 09/07/2023, 08/23/2022 Insurance RX [employer] (INTERNAL) [facility] RX [employer] Commercial RX GENERIC COMMERCIAL Commercial RX [facility] [employer] RX [employer] DATA Medicare Part B
[2025-08-04 11:41] LABS: Hemoglobin A1C 8.5 % (<5.7)
[2025-08-04 11:44] LABS: Alanine Aminotransferase 41 U/L (6-35); Albumin Level 5.0 g/dL (3.5-5.1); Alkaline Phosphatase 80 U/L (38-126); Anion Gap 12 mmol/L (4-12); Aspartate Amino Transferase 39 U/L (14-36); Bilirubin,Total 0.7 mg/dL (0.2-1.3); Blood Urea Nitrogen 16 mg/dL (7-17); Calcium 9.9 mg/dL (8.4-10.2); Carbon Dioxide 29 mmol/L (22-30); Chloride 98 mmol/L (98-107); Cholesterol 230 mg/dL (0-200); Creatine Kinase 90 U/L (30-135); Estimated Glomerular Filt Rate > 60; Glucose 177 mg/dL (65-110); HDL Direct 71 mg/dL; Osmolality Calculated 293 mOsm/kg (285-295); Potassium 4.2 mmol/L (3.4-5.0); Sodium 139 mmol/L (137-145); Total Protein 8.3 g/dL (6.3-8.2); Triglycerides 226 mg/dL (<150)
[2025-08-04 11:56] LABS: Troponin I < 0.012 ng/mL (0.000-0.034)
== END 2025-08-04 11:11 | disposition home or self-care (01) ==
LOC: CHSLAB 11:13
PROVIDERS: PCP Internal Medicine; Visit Provider Internal Medicine
DX: E11.9 Type 2 diabetes mellitus without complications (principal); R07.9 Chest pain, unspecified
CPT/HCPCS: 36415; 80053; 80061; 82550; 82553; 83036; 84484; 85025; 85380

== ENCOUNTER 2025-11-16 07:23 | Outpatient (CLI) | payer BC, SELFPAY ==
--- OUTSIDE RECORDS SUMMARY | 2025-11-16 07:28 | XMS_ITS | Clinical Summary ---
Author Organization [facility] Address [address] [place]: Epic Prelude ADT STEPHANIE GONZALEZ [id number] Care Team Providers Care Counter Weigher Name Role Phone Unavailable Primary Care Provider [...] plain water. 30 Tablet 01/28/2023 2:06 PM OBSERVATION ASSISTANT 3 Active gabapentin (NEURONTIN) 100 mg capsule Take 1 Capsule (100 mg) by mouth daily. 30 Capsule 01/30/2023 11:15 AM OBSERVATION ASSISTANT 3 Active methylPREDNISolo ne (Medrol, Sonu,) 4 mg Tablets, Dose Pack TAKE DIRECTED ON PACKAGE. 21 Tablet 04/07/2023 2:11 PM CDT 3 Active fluticasone propionate (FLONASE) 50 mcg/spray [place], Suspension nasal inhaler ADMINISTER 2 SPRAYS IN EACH NOSTRIL DAILY NEEDED 16 Gram 2 11/04/2023 2:00 PM OBSERVATION ASSISTANT 3 Active blood sugar diagnostic (OneTouch Ultra Test) Strip Test blood sugar once daily 100 Strip 12/30/2023 1:07 PM OBSERVATION ASSISTANT 4 Active venlafaxine (EFFEXOR) 75 mg tablet [...] times daily. 90 Tablet 12/08/2024 2:03 PM OBSERVATION ASSISTANT 4 Active verapamiL (CALAN SR) 240 mg Sustained Release tablet Take 1 Tablet (240 mg) by mouth daily at bedtime. 90 Tablet 1 11/24/2024 12:37 PM OBSERVATION ASSISTANT 4 Active Blood-Glucose Meter (OneTouch Ultra2 Meter) Use as directed 1 Each 09/27/2024 12:32 PM CDT 4 Active pantoprazole (PROTONIX) 40 mg Tablet, Delayed Release (E.C.) Take 1 Tablet (40 mg) by mouth 2 times daily. 90 Tablet 10/21/2024 11:20 AM OBSERVATION ASSISTANT 4 Active nirmatrelvir-rit onavir (Paxlovid) 300(150mg x 2)-100 mg oral pack Take 2 tablets of nirmatrelvir and 1 tablet ritonavir by mouth 2 times per day per package directions for 5 days. 30 Each 12/17/2024 11:47 AM OBSERVATION ASSISTANT 5 Active blood sugar diagnostic (OneTouch Ultra Test) Strip Test blood sugar once daily. 100 Strip 3 5 Active SITagliptin phosphate (Januvia) 50 mg Tablet Take 1 Tablet (50 mg) by mouth daily. 30 Tablet 2 10/24/2025 2:04 PM OBSERVATION ASSISTANT 5 Active benzonatate (TESSALON) 200 mg capsule Take 1 Capsule (200 mg) by mouth 3 times daily for cough 30 Capsule 09/29/2025 11:30 AM CDT 5 Active pantoprazole (PROTONIX) 40 mg Tablet, Delayed Release (E.C.) Take 1 Tablet (40 mg) by mouth 2 times daily. 90 Tablet 10/09/2025 1:13 PM OBSERVATION ASSISTANT 5 Active verapamiL (CALAN SR) 240 mg Sustained Release tablet Take 1 Tablet (240 mg) by mouth daily at bedtime. 90 Tablet 5 Active Encounters Date Type Department Care Team Description 11/07/2025 External Device Data [facility] Provider, Abstract 09/27/2025 External Device Data [facility] Provider, Abstract 09/26/2025 External Device Data [facility] Provider, Abstract from Last 3 Months Immunizations Immunization Administration Dates Next Due INFLUENZA VACCINE QUADRIVALENT 6 MOS UP PF IM ,08/23/2022 INFLUENZA VACCINE TRIVALENT SPLIT VIRUS, (6 MOS UP), 0.5ML (PF), IM 09/15/2025,08/23/2024 Social History Tobacco Use Types Packs/Day Years [...] (1 of 2) 2016 INFLUENZA VACCINE Completed 09/15/2025, , 09/07/2023, Additional history exists Insurance RX [employer] (INTERNAL) [facility] [employer] RX [employer] Commercial RX GENERIC COMMERCIAL Commercial RX [facility] [employer] RX [facility] DATA Medicare Part B
[2025-11-16 07:34] LABS: Hematocrit 41.2 % (35.0-49.0); Hemoglobin 13.2 g/dL (12.0-15.0); Mean Corpuscular HGB Conc 32.0 g/dL (32-36); Mean Corpuscular Hemoglobin 28.6 pg (27.0-31.0); Mean Corpuscular Volume 89.4 fL (78.0-102.0); Platelet Count Result 207 K/mm3 (150-420); Red Blood Count 4.61 M/mm3 (4.20-5.40); White Blood Count 4.9 K/mm3 (4.8-10.8)
[2025-11-16 07:36] LABS: Add Urine Microscopic? NO; Appearance Urine Clear (Clear); Glucose Urine UA Negative (Negative); Leukocyte Esterase Ur Negative LEU/UL (Negative); Nitrate Urine Negative (Negative); Specific Grav Ur 1.020 (1.010-1.020)
[2025-11-16 08:22] LABS: Alanine Aminotransferase 32 U/L (6-35); Albumin Level 4.7 g/dL (3.5-5.1); Alkaline Phosphatase 68 U/L (38-126); Anion Gap 12 mmol/L (4-12); Aspartate Amino Transferase 27 U/L (14-36); Bilirubin,Total 0.6 mg/dL (0.2-1.3); Blood Urea Nitrogen 21 mg/dL (7-17); Calcium 9.3 mg/dL (8.4-10.2); Carbon Dioxide 26 mmol/L (22-30); Chloride 103 mmol/L (98-107); Cholesterol 178 mg/dL (0-200); Estimated Glomerular Filt Rate > 60; Glucose 150 mg/dL (65-110); HDL Direct 55 mg/dL; Hemoglobin A1C 6.4 % (<5.7); Osmolality Calculated 298 mOsm/kg (285-295); Potassium 4.3 mmol/L (3.4-5.0); Sodium 141 mmol/L (137-145); Total Protein 7.8 g/dL (6.3-8.2); Triglycerides 164 mg/dL (<150)
== END 2025-11-16 07:24 | disposition home or self-care (01) ==
LOC: CHSLAB 07:25
PROVIDERS: PCP Internal Medicine; Visit Provider Internal Medicine
DX: E11.65 Type 2 diabetes mellitus with hyperglycemia (principal); E78.5 Hyperlipidemia, unspecified
CPT/HCPCS: 36415; 80053; 80061; 81003; 83036; 85027